=== PATIENT | female | born 1975 | race Caucasian/White ===

== ENCOUNTER 2017-10-14 16:02 | Observation (INO) | payer MEDICAID ==
[2017-10-14 16:02] VITALS: BMI 47.3
--- NOTE | 2017-10-14 16:18 | C.PDOC ---
Time Seen by Provider: 10/14/17 16:14 Chief Complaint (Nursing): Weakness/Neurological Deficit Past Medical History Vital Signs: Last Vital Signs Temp 98.6 F 10/14/17 16:07 Pulse 90 10/14/17 16:07 Resp 18 10/14/17 16:07 BP 127/84 10/14/17 16:07 Pulse Ox 98 10/14/17 16:25 - Medical History PMH: Asthma, Depression (resolved), HTN, Hypercholesterolemia (now resolved) Denies: Chronic Kidney Disease [facility]OPHAGOGASTRODUODENOSCOPY [EGD] W/CLOSED BIOPSY (01/29/14) EXCISION OF STOMACH, ENDO, DIAGN (04/15/15) LAPAROSCOPIC REPAIR OF DIAPHRAGMATIC HRN, ABDOMINAL APPROACH (07/29/14) LAPAROSCOPIC ROBOTIC ASSISTED PROCEDURE (07/29/14) LAPAROSCOPIC VERTICAL (SLEEVE) GASTRECTOMY (07/29/14) OTHER GASTROSCOPY (07/29/14) Family History: States: Diabetes, Hypertension - Social History Hx Tobacco Use: No Hx Alcohol Use: No Hx Substance Use: No - Immunization History Hx Tetanus Toxoid Vaccination: Yes Hx Influenza Vaccination: Yes Hx Pneumococcal Vaccination: No ED Course And Treatment O2 Sat by Pulse Oximetry: 98 Disposition - Disposition Forms: [employer] (Bulgarian)
--- NOTE | 2017-10-14 16:25 | C.PDOC ---
History Of Present Illness 42 year old female presents to the emergency department with complaints of new onset headache, right facial and R leg weakness. Patient states that her headache has been constant and persistent since midnight. However, right her facial numbness and leg left weakness began at 9AM this morning and has been constant since. She denies history of trauma or migraine. Patient states she took Tylenol this morning with no improvement of her symptoms. She denies other associated symptoms. NEW ONSET PALOMARES, R FACIAL AND LEG WEAKNESS. PALOMARES SINCE MIDNIGHT. CONSTANT. NEW ONSET R FACIAL NUMBNESS, R LEG WEAKNESS SINCE 0900. CONSTANT. DENIES HO TRAUMA, MIGRAINE. SP ASA THIS MORNING NO IMPROVE. DENIES OTHER ASSOC SX PMHX: denies Pshx: Gastric sleeve 07/2014 and 2012 Shx: Denies alcohol,drugs or smoking Fhx: Father has DM, HTN, and hyperlipidemia EXAM NONTOXIC HEENT NEG GAIT LIMITED FULL STAND DORSIFLEX NEURO SEE NIH REMAINDER NEG Time Seen by Provider: 10/14/17 16:14 Chief Complaint (Nursing): Weakness/Neurological Deficit History Per: Patient History/Exam Limitations: no limitations Onset/Duration Of Symptoms: Hrs Current Symptoms Are (Timing): Still Present Quality: Aching, Other (weakness, numbness) Past Medical History Reviewed: Historical Data, Nursing Documentation, Vital Signs Vital Signs: Last Vital Signs Temp 98.6 F 10/14/17 16:07 Pulse 91 H 10/14/17 16:57 Resp 16 10/14/17 16:57 BP 133/80 10/14/17 16:57 Pulse Ox 98 10/14/17 18:04 - Medical History PMH: Asthma, Depression (resolved), HTN, Hypercholesterolemia (now resolved) Denies: Chronic Kidney Disease Surgical History: Endoscopy Other Surgeries: Gastric sleeve 07/2014, 2012 - [facility] Procedures ESOPHAGOGASTRODUODENOSCOPY [EGD] W/CLOSED BIOPSY (01/29/14) EXCISION OF STOMACH, ENDO, DIAGN (04/15/15) LAPAROSCOPIC REPAIR OF DIAPHRAGMATIC HRN, ABDOMINAL APPROACH (07/29/14) LAPAROSCOPIC ROBOTIC ASSISTED PROCEDURE (07/29/14) LAPAROSCOPIC VERTICAL (SLEEVE) GASTRECTOMY (07/29/14) OTHER GASTROSCOPY (07/29/14) Family History: States: Diabetes, Hypertension, Other Other Family History: Hyperlipidemia - Social History Hx Tobacco Use: No Hx Alcohol Use: No Hx Substance Use: No - Immunization History Hx Tetanus Toxoid Vaccination: Yes Hx Influenza Vaccination: Yes Hx Pneumococcal Vaccination: No Review Of Systems Except As Marked, All Systems Reviewed And Found Negative. Neurological: Positive for: Headache Physical Exam - Physical Exam Appears: Non-toxic, No Acute Distress Skin: Warm, Dry Head: Atraumatic, Normacephalic Eye(s): bilateral: Normal Inspection Neck: Normal, Supple Chest: Symmetrical Cardiovascular: Rhythm Regular Respiratory: Normal Breath Sounds, No Rales, No Rhonchi, No Wheezing Extremity: No Normal ROM, No Tenderness Neurological/Psych: Oriented x3, Normal Speech, Normal Cognition Gait: Other (limited full-standing and dorsiflexion) ED Course And Treatment - Laboratory Results Result Diagrams: 10/14/17 17:09 10/14/17 17:09 O2 Sat by Pulse Oximetry: 98 (RA) Pulse Ox Interpretation: Normal - CT Scan/US CT Head Other Rad Studies (CT/US): Read By Radiologist, Radiology Report Reviewed CT/US Interpretation: IMPRESSION: No acute findings. Aspect 10 CTA Neck Other Rad Studies (CT/US): Read By Radiologist, Radiology Report Reviewed CT/US Interpretation: IMPRESSION: Normal neck CTA Progress Note: Plan: Blood Bank Type and Screen. CTA Head/Neck Code Stroke. CT Head (Code Stroke). EKG. CMP. Hemoglobin A1C. Lipid Panel. Troponin I. CBC. PTT. Prothrombin Time. CXR. Glucose POC. Ecotrin 243 mg PO. NaCl IV Fluids NIHSS Stroke Scale - Date/Time Evaluation Performed Date Performed: 10/14/17 Time Performed: 16:30 When Was NIHSS Performed: Baseline - How Severe is the Stoke Level of Consciousness: 0=Alert LOC to Questions: 0=Both comments correct LOC to commands: 0=Obeys both correctly Best Gaze: 0=Normal Visual: 0=No visual loss Facial: 0=Normal Motor Arm - Left: 0=No drift Motor Arm - Right: 0=No drift Motor Leg - Left: 0=No drift Motor Leg - Right: 0=No drift Limb Ataxia: 0=Absent Sensory: 1=Mild to moderate loss Best Language: 0=No aphasia Dysarthia: 0=Normal articulation Extinction & Inattention (Neglect): 0=Normal, no object Score: 1 Severity Of Stroke: 1-4= Minor Stroke NIHSS Stroke Scale 2 - Date/Time Evaluation Performed Date Performed: 10/14/17 Time Performed: 17:46 When Was NIHSS Performed: Re-evaluation - How Severe is the Stroke Level of Consciousness: 0=Alert LOC to Questions: 0=Both comments correct LOC to commands: 0=Obeys both correctly Best Gaze: 0=Normal Visual: 0=No visual loss Facial: 0=Normal Motor Arm - Left: 0=No drift Motor Arm - Right: 0=No drift Motor Leg - Left: 0=No drift Motor Leg - Right: 0=No drift Limb Ataxia: 0=Absent Sensory: 1=Mild to moderate loss Best Language: 0=No aphasia Dysarthia: 0=Normal articulation Extinction & Inattention (Neglect): 0=Normal, no object Score: 1 Progress - Re-Evaluation Re-evaluation Note: 10/14/17 16:25 CODE STROKE ACTIVATED 10/14/17 17:33 D/W DR MANCUSO NEURO DEPUTY DIRECTOR OF NURSING AWARE OF ER FINDINGS. NOT TPA CANDIDATE. RECOMMENDS MG, DEPAKOTE, DEX, IVF, MRI, ADMIT MED 10/14/17 17:46 EXAM UNCH PRIOR. VSS. 10/14/17 18:07 d/w dr davalos WILL ADMIT - Data Reviewed Data Reviewed: Lab, Diagnostic imaging, EKG, Old records - Critical Care Citical Care: Excluding Proc Time Critical Care Time: 90 minutes rTPA Inclusion/Exclusion - Refusal of Treatment Patient Refused Treatment: No - Inclusion Criteria for Altepase Patient is 18 years or Older: Yes The Clinical Diagnosis of Ischemic Stroke That is Causing a Potentially Disabling Neurological Deficit: Yes Time of Onset is Well Established to be Less Than 270 Minute Before Treatment Would Begin: No Risk/Benefit Discussed With Patient/Family Member Present: Yes - Exclusion Criteria for Altepase Uncontrolled Hypertension at Time of Treatment (Systolic BP above 185 or Diastolic BP above 110 mmHg): No Active Internal Bleeding: No Known Bleeding Diathesis Including but Not Limited to: Platelets Below 100,000/ mm,PTT Above 40 sec After Heparin Use, Current Use of Oral Anitcoagulant With INR Greater Than 1.7 or PT Greater Than 15 secs: No Evidence of an Intracranial Hemorrhage: No Evidence of Major Acute Infarct With Signs Greater Than 1/3 MCA Territory: No Suspicion of Subarachnoid Hemorrhage on Pretreatment Evaluation Even if CT Head Negative For Hemorrhage: No - Warning to TPA With Conditions Following Conditions Weighed Against Anticipated Benefit: No Condition: Stroke Serevity Too Mild Disposition Counseled Patient/Family Regarding: Studies Performed, Diagnosis - Disposition Disposition: HOSPITALIZED Disposition Time: 18:08 Condition: STABLE Forms: [facility] (Nepalese) - POA Present On Arrival: None - Clinical Impression Clinical Impression: TIA (transient ischemic attack), Headache - Scribe Statement The provider has reviewed the documentation as recorded by the Scribe (Landon Noonan) Provider Attestation: All medical record entries made by the Scribe were at my direction and personally dictated by me. I have reviewed the chart and agree that the record accurately reflects my personal performance of the history, physical exam, medical decision making, and the department course for this patient. I have also personally directed, reviewed, and agree with the discharge instructions and disposition. Decision To Admit - Pt Status Changed To: Hospital Disposition Of: Observation - . Bed Request Type: Telemetry Admitting Physician: Pati Davalos Patient Diagnosis: TIA (transient ischemic attack), Headache
[2017-10-14] MEDS ORDERED: Iodixanol 320 MG/ML 100 ML BOTTLE IV ONE (16:41)
[2017-10-14] MEDS: Sodium Chloride 0.9% 1,000 ML IV SCH (17:07)
[2017-10-14] MEDS ORDERED: Sodium Chloride 0.9% 1,000 ML ONE (17:11)
[2017-10-14 17:15] LABS: BASO # 0.1 K/uL (0.0-0.2); BASO % 0.9 % (0.0-2.0); EOS # 0.3 K/uL (0.0-0.7); HEMOGLOBIN 8.2 g/dL (11.0-16.0); LYMPH # 1.4 K/uL (1.0-4.3); LYMPH % 16.5 % (20.0-40.0); MEAN CELL VOLUME 63.9 fL (81.0-99.0); MEAN CORPUSCULAR HEMOGLOBIN 20.3 pg (27.0-31.0); MEAN CORPUSCULAR HGB CONC 31.7 g/dL (33.0-37.0); MEAN PLATELET VOLUME 8.3 fL (7.2-11.7); MONO # 0.9 K/uL (0.0-0.8); MONO % 10.7 % (0.0-10.0); NEUT # 5.8 K/uL (1.8-7.0); NEUT % 68.9 % (50.0-75.0); RBC 4.05 Mil/uL (3.80-5.20); RED CELL DISTRIBUTION WIDTH 18.2 % (11.5-14.5); WHITE BLOOD COUNT 8.5 K/uL (4.8-10.8)
[2017-10-14 17:25] LABS: PROTHROMBIN TIME 11.4 SECONDS (9.7-12.2)
[2017-10-14 17:28] LABS: ALB/GLOB RATIO 1.1 (1.0-2.1); ALBUMIN 3.8 g/dL (3.5-5.0); ALT/SGPT 24 U/L (9-52); AST/SGOT 20 U/L (14-36); BLOOD UREA NITROGEN 20 mg/dL (7-17); CALCIUM 8.6 mg/dl (8.6-10.4); GFR NON-AFRICAN AMERICAN > 60; HDL CHOLESTEROL 63 mg/dL (30-70)
[2017-10-14] MEDS ORDERED: Magnesium Sulfate 1 gm in D5W 1 GM/100 ML BAG IVPB STA (17:30)
[2017-10-14] MEDS ORDERED: Sodium Chloride 0.9% 1,000 ML IV STA (17:30)
[2017-10-14] MEDS ORDERED: Dexamethasone 4 mg/1 ml IVP STA (17:30)
--- NOTE | 2017-10-14 17:34 | RAD ---
Date of service: 10/14/2017 HISTORY: Code Stroke COMPARISON: No prior. FINDINGS: LUNGS: Poor inspiration with low lung volumes, crowded bronchovascular markings and mild bibasilar atelectasis. PLEURA: No significant pleural effusion identified, no pneumothorax apparent. CARDIOVASCULAR: Cardiomegaly. TheNormal. OSSEOUS STRUCTURES: No significant abnormalities. VISUALIZED UPPER ABDOMEN: Normal. OTHER FINDINGS: None. IMPRESSION: Poor inspiration with low lung volumes, crowded bronchovascular markings and mild bibasilar atelectasis.
[2017-10-14 17:39] LABS: LDL CHOLESTEROL 101 mg/dL (0-129)
[2017-10-14] MEDS ORDERED: Valproate 500 MG in Sodium Chloride 0.9% 100 ML IVPB STA (17:54)
--- NOTE | 2017-10-14 17:54 | CT ---
Date of service: 10/14/2017 PROCEDURE: CT HEAD WITHOUT CONTRAST. HISTORY: Code Stroke R FACIAL NUMB, R LEG WEAKNESS, PALOMARES COMPARISON: None available. TECHNIQUE: Axial computed tomography images were obtained through the head/brain without intravenous contrast. Radiation dose: Total exam DLP = 922.98 mGy-cm. This CT exam was performed using one or more of the following dose reduction techniques: Automated exposure control, adjustment of the mA and/or kV according to patient size, and/or use of iterative reconstruction technique. FINDINGS: HEMORRHAGE: No acute parenchymal, subarachnoid or extra-axial the hemorrhage. BRAIN: No mass effect or edema. No evidence of large acute infarct. No significant or chronic microvascular ischemic changes. Note that the possibility of a small hyperacute infarct cannot be excluded based on this exam. Ventricular and sulcal size are within range of normal for this patient's stated age. VENTRICLES: No obstructive hydrocephalus. CALVARIUM: Unremarkable. PARANASAL SINUSES: Minor mucosal thickening within the ethmoid air complex. MASTOID AIR CELLS: Unremarkable as visualized. No inflammatory changes. OTHER FINDINGS: None. IMPRESSION: No acute intracranial hemorrhage. Note that the possibility of a small hyperacute infarct cannot be excluded on this exam
--- NOTE | 2017-10-14 18:33 | CT ---
Date of service: 10/14/2017 PROCEDURE: CT Angiography of the neck with contrast HISTORY: R FACIAL NUMB, R LEG WEAKNESS, PALOMARES COMPARISON: Comparison made with concurrent CT scan brain TECHNIQUE: Contiguous axial images of the neck brain were obtained from the level of the skull- vertex to the superior mediastinum in the arteriographic phase of enhancement. Coronal and sagittal reformats or also generated. IV contrast dose:. 100 cc Visipaque 320 Radiation Dose - DLP: 548.17 mGy-cm This CT exam was performed using one or more of the following dose reduction techniques: Automated exposure control, adjustment of the mA and/or kV according to patient size, and/or use of iterative reconstruction technique. . FINDINGS: The aortic arch widely patent. Origins of the great vessels are also widely patent. The common carotid arteries, carotid bifurcations and internal carotid arteries are patent throughout without evidence of occlusion, stenosis or dissection. The vertebral arteries are also patent throughout. Basilar artery is patent. The visualized major branches of the [place] and distal cerebral vasculature is also patent and relatively symmetric no evidence of large aneurysm nor vascular malformation OTHER FINDINGS: Mucosal thickening present within right maxillary antrum and right chamber sphenoid sinus as well as several ethmoid air cells more so on the right side. IMPRESSION: Normal CT Angiography of the neck.
--- NOTE | 2017-10-14 20:32 | CP.PCM.HP ---
<Franklin Mccallum - Last Filed: 10/15/17 04:11> History of Present Illness - History of Present Illness History of Present Illness: PGY2 Medicine H+P for Dr. Lopez Patient is a 42 year old female with a past medical history of asthma presenting to the emergency department with a complaint of a headache with right sided facial numbness and right leg weakness. The symptoms started with a headache last night before waking up with the facial numbness/weakness around 9am this morning. She attempted to take a Tylenol this morning with no improvement. Patient has never experienced these symptoms in the past. Denies fevers, chills, nausea, vomiting, diarrhea, constipation, chest pain, shortness of breath, abdominal pain, tremors, bladder/bowel incontinence. ED Course: A code stroke was as activated but patient was not a candidate for tPA. Neuro recommended treatment with mg, depakote, decadron, aspirin, toradol, reglan and IVF. Patient reports that all of her symptoms have resolved and she is currently feeling back to normal. She is no longer experiencing PMH: Asthma PSH: Gastric sleeve (2014), Tummy Tuckerck (2013) Family: diabetes, HTN Social: denies tobacco, alcohol or illicit drug use Allergies: NKDA Present on Admission - Present on Admission Any Indicators Present on Admission: No Review of Systems - Review of Systems All systems: reviewed and no additional remarkable complaints except - Constitutional Constitutional: As Per HPI - EENT Eyes: As Per HPI Nose/Mouth/Throat: As Per HPI - Cardiovascular Cardiovascular: As Per HPI - Respiratory Respiratory: As Per HPI - Gastrointestinal Gastrointestinal: As Per HPI - Genitourinary Genitourinary: As Per HPI - Musculoskeletal Musculoskeletal: As Per HPI - Integumentary Integumentary: As Per HPI - Neurological Neurological: As Per HPI - Psychiatric Psychiatric: As Per HPI - Endocrine Endocrine: As Per HPI - Hematologic/Lymphatic Hematologic: As Per HPI Past Patient History - Past Medical History & Family History Past Medical History?: Yes - Past Social History Smoking Status: Never Smoked - CARDIAC Hx Hypercholesterolemia: Yes (now resolved) Hx Hypertension: Yes - PULMONARY Hx Asthma: Yes - NEUROLOGICAL Hx Neurological Disorder: No - HEENT Hx HEENT Problems: No - RENAL Hx Chronic Kidney Disease: No - ENDOCRINE/METABOLIC Hx Endocrine Disorders: No - HEMATOLOGICAL/ONCOLOGICAL Hx Blood Disorders: Yes - INTEGUMENTARY Hx Dermatological Problems: No - MUSCULOSKELETAL/RHEUMATOLOGICAL Hx Musculoskeletal Disorders: Yes Hx Falls: No - GASTROINTESTINAL Hx Gastrointestinal Disorders: No - GENITOURINARY/GYNECOLOGICAL Hx Genitourinary Disorders: No - PSYCHIATRIC Hx Depression: Yes (resolved) Hx Substance Use: No - SURGICAL HISTORY Hx Surgeries: Yes (ABDOMINOPLASTY) - ANESTHESIA Hx Anesthesia: Yes Hx Anesthesia Reactions: No Hx Malignant Hyperthermia: No Meds Allergies/Adverse Reactions: Allergies Allergy/AdvReac Type Severity Reaction Status Date / Time No Known Allergies Allergy Verified 04/14/15 20:23 Physical Exam - Constitutional Appears: Well, Non-toxic, No Acute Distress - Head Exam Head Exam: ATRAUMATIC, NORMOCEPHALIC - Eye Exam Eye Exam: EOMI, Normal appearance, PERRL. absent: Scleral icterus Pupil Exam: NORMAL ACCOMODATION, PERRL - ENT Exam ENT Exam: Mucous Membranes Moist - Neck Exam Neck exam: Positive for: Full Rom, Normal Inspection. Negative for: Lymphadenopathy, Tenderness - Respiratory Exam Respiratory Exam: Clear to Auscultation Bilateral, NORMAL BREATHING PATTERN. absent: Accessory Muscle Use, Chest Wall Tenderness, Rales, Rhonchi, Wheezes, Respiratory Distress - Cardiovascular Exam Cardiovascular Exam: REGULAR RHYTHM, +S1, +S2 - GI/Abdominal Exam GI & Abdominal Exam: Normal Bowel Sounds, Soft. absent: Distended, Firm, Guarding, Rebound, Rigid, Tenderness - Extremities Exam Extremities exam: Positive for: normal capillary refill, normal inspection, pedal pulses present. Negative for: calf tenderness, pedal edema, tenderness - Neurological Exam Neurological exam: Alert, CN II-XII Intact, Oriented x3 - Expanded Neurological Exam Expanded Patient oriented to: person, place, time Speech: Fluid Speech Cranial nerves: EOM's Intact: Normal, Facial Sensation: Normal, Nystagmus: Normal, Tongue Deviation: Normal Ataxia: No Cerebellar Function: Finger to Nose: Normal, Heel to [place]: Normal, Romberg: Normal Upper motor neuron: Babinski Sign: Normal, Pronator Drift: Normal Sensory exam: Lower Extremity Light Touch: Normal, Upper Extremity Light Touch: Normal Neuro motor strength exam: Left Upper Extremity: 5, Right Upper Extremity: 5 ( slightly weaker on right>left), Left Lower Extremity: 5, Right Lower Extremity: 5 (slightly weaker on right>left) Coma Scale Eye Opening: SPONTANEOUS Coma Scale Motor Response: OBEYS COMMANDS Coma Scale Verbal: Oriented Coma Scale Total: 15 - Psychiatric Exam Psychiatric exam: Normal Affect, Normal Mood - Skin Skin Exam: Dry, Normal Color, Warm Results - Vital Signs Recent Vital Signs: Last Vital Signs Temp 98.6 F 10/14/17 16:07 Pulse 84 10/14/17 19:48 Resp 14 10/14/17 19:48 BP 137/75 10/14/17 19:48 Pulse Ox 99 10/14/17 19:48 - Labs Result Diagrams: 10/14/17 17:09 10/14/17 17:09 Labs: Laboratory Results - last 24 hr 10/14/17 10/14/17 10/14/17 16:08 16:27 17:09 WBC 8.5 RBC 4.05 Hgb 8.2 L D Hct 25.8 L MCV 63.9 L D MCH 20.3 L MCHC 31.7 L RDW 18.2 H Plt Count 324 MPV 8.3 Neut % (Auto) 68.9 Lymph % (Auto) 16.5 L [place] % (Auto) 10.7 H Eos % (Auto) 3.0 Baso % (Auto) 0.9 Neut # (Auto) 5.8 Lymph # (Auto) 1.4 [place] # (Auto) 0.9 H Eos # (Auto) 0.3 Baso # (Auto) 0.1 Differential Comment PT INR APTT Sodium Potassium Chloride Carbon Dioxide Anion Gap BUN Creatinine Est GFR ( Amer) Est GFR (Non-Af Amer) POC Glucose (mg/dL) 100 94 Random Glucose Hemoglobin A1c Calcium Total Bilirubin AST ALT Alkaline Phosphatase Troponin I Total Protein Albumin Globulin Albumin/Globulin Ratio Triglycerides Cholesterol LDL Cholesterol Direct HDL Cholesterol Blood Type Antibody Screen 10/14/17 10/14/17 10/14/17 17:09 17:09 17:09 WBC RBC Hgb Hct MCV MCH MCHC RDW Plt Count MPV Neut % (Auto) Lymph % (Auto) [place] % (Auto) Eos % (Auto) Baso % (Auto) Neut # (Auto) Lymph # (Auto) [place] # (Auto) Eos # (Auto) Baso # (Auto) Differential Comment PT 11.4 INR 1.0 APTT 27 Sodium 140 Potassium 3.8 Chloride 103 Carbon Dioxide 27 Anion Gap 13 BUN 20 H Creatinine 0.9 Est GFR ( Amer) > 60 Est GFR (Non-Af Amer) > 60 POC Glucose (mg/dL) Random Glucose 96 Hemoglobin A1c 5.3 Calcium 8.6 Total Bilirubin 0.2 AST 20 ALT 24 Alkaline Phosphatase 109 Troponin I < 0.0120 Total Protein 7.1 Albumin 3.8 Globulin 3.3 Albumin/Globulin Ratio 1.1 Triglycerides 197 H Cholesterol 192 LDL Cholesterol Direct 101 HDL Cholesterol 63 Blood Type Antibody Screen 10/14/17 17:09 WBC RBC Hgb Hct MCV MCH MCHC RDW Plt Count MPV Neut % (Auto) Lymph % (Auto) [place] % (Auto) Eos % (Auto) Baso % (Auto) Neut # (Auto) Lymph # (Auto) [place] # (Auto) Eos # (Auto) Baso # (Auto) Differential Comment PT INR APTT Sodium Potassium Chloride Carbon Dioxide Anion Gap BUN Creatinine Est GFR ( Amer) Est GFR (Non-Af Amer) POC Glucose (mg/dL) Random Glucose Hemoglobin A1c Calcium Total Bilirubin AST ALT Alkaline Phosphatase Troponin I Total Protein Albumin Globulin Albumin/Globulin Ratio Triglycerides Cholesterol LDL Cholesterol Direct HDL Cholesterol Blood Type A POSITIVE Antibody Screen Negative Assessment & Plan - Assessment and Plan (Free Text) Plan: [place]/R-sided facial numbness/R-sided leg weakness (resolved) CODE STROKE CALLED Neuro consulted, Dr. Childers * Patient not a candidate for tPA * Patient tx'd with mg, depakote, decadron, aspirin, toradol, reglan and IVF in ED * follow up recs. Head CT w/o 10/14: * No acute intracranial hemorrhage. Note that the possibility of a small hyperacute infarct cannot be excluded on this exam. Head CTA 10/14: * Normal CT Angiography of the neck. CXR 10/14: * Poor inspiration with low lung volumes, crowded bronchovascular markings and mild bibasilar atelectasis. Neuro Exam unremarkable continue to monitor Medications: * NS@100mL/hr Prophylactic Care Lovenox 40mg SC daily Case discussed with Dr. Jessica Reid Alessio PGY2 <Ruben Lopez - Last Filed: 10/15/17 06:03> Results - Vital Signs Recent Vital Signs: Last Vital Signs Temp 98.5 F 10/15/17 04:22 Pulse 88 10/15/17 04:22 Resp 20 10/15/17 04:22 BP 113/89 10/15/17 04:22 Pulse Ox 98 10/15/17 04:22 - Labs Result Diagrams: 10/14/17 17:09 10/14/17 17:09 Labs: Laboratory Results - last 24 hr 10/14/17 10/14/17 10/14/17 16:08 16:27 17:09 WBC 8.5 RBC 4.05 Hgb 8.2 L D Hct 25.8 L MCV 63.9 L D MCH 20.3 L MCHC 31.7 L RDW 18.2 H Plt Count 324 MPV 8.3 Neut % (Auto) 68.9 Lymph % (Auto) 16.5 L [place] % (Auto) 10.7 H Eos % (Auto) 3.0 Baso % (Auto) 0.9 Neut # (Auto) 5.8 Lymph # (Auto) 1.4 [place] # (Auto) 0.9 H Eos # (Auto) 0.3 Baso # (Auto) 0.1 Differential Comment PT INR APTT Sodium Potassium Chloride Carbon Dioxide Anion Gap BUN Creatinine Est GFR ( Amer) Est GFR (Non-Af Amer) POC Glucose (mg/dL) 100 94 Random Glucose Hemoglobin A1c Calcium Total Bilirubin AST ALT Alkaline Phosphatase Troponin I Total Protein Albumin Globulin Albumin/Globulin Ratio Triglycerides Cholesterol LDL Cholesterol Direct HDL Cholesterol Blood Type Antibody Screen 10/14/17 10/14/17 10/14/17 17:09 17:09 17:09 WBC RBC Hgb Hct MCV MCH MCHC RDW Plt Count MPV Neut % (Auto) Lymph % (Auto) [place] % (Auto) Eos % (Auto) Baso % (Auto) Neut # (Auto) Lymph # (Auto) [place] # (Auto) Eos # (Auto) Baso # (Auto) Differential Comment PT 11.4 INR 1.0 APTT 27 Sodium 140 Potassium 3.8 Chloride 103 Carbon Dioxide 27 Anion Gap 13 BUN 20 H Creatinine 0.9 Est GFR ( Amer) > 60 Est GFR (Non-Af Amer) > 60 POC Glucose (mg/dL) Random Glucose 96 Hemoglobin A1c 5.3 Calcium 8.6 Total Bilirubin 0.2 AST 20 ALT 24 Alkaline Phosphatase 109 Troponin I < 0.0120 Total Protein 7.1 Albumin 3.8 Globulin 3.3 Albumin/Globulin Ratio 1.1 Triglycerides 197 H Cholesterol 192 LDL Cholesterol Direct 101 HDL Cholesterol 63 Blood Type Antibody Screen 10/14/17 17:09 WBC RBC Hgb Hct MCV MCH MCHC RDW Plt Count MPV Neut % (Auto) Lymph % (Auto) [place] % (Auto) Eos % (Auto) Baso % (Auto) Neut # (Auto) Lymph # (Auto) [place] # (Auto) Eos # (Auto) Baso # (Auto) Differential Comment PT INR APTT Sodium Potassium Chloride Carbon Dioxide Anion Gap BUN Creatinine Est GFR ( Amer) Est GFR (Non-Af Amer) POC Glucose (mg/dL) Random Glucose Hemoglobin A1c Calcium Total Bilirubin AST ALT Alkaline Phosphatase Troponin I Total Protein Albumin Globulin Albumin/Globulin Ratio Triglycerides Cholesterol LDL Cholesterol Direct HDL Cholesterol Blood Type A POSITIVE Antibody Screen Negative Assessment & Plan - Date & Time Date: 10/15/17 (I have seen and examined the patient. I agree with the findings and plan of care as documented by Dr. Mccallum. Patient with CVA. Code stroke called in ED. Consult to Neuro. Not a tPA candidate. Follow code stroke protocol. Monitor for acute changes.) Time: 06:02 Attending/Attestation - Attestation I have personally seen and examined this patient.: Yes I have fully participated in the care of the patient.: Yes I have reviewed all pertinent clinical information: Yes
[2017-10-15 00:39] VITALS: RESP 20
[2017-10-15] MEDS: Sodium Chloride 0.9% 1,000 ML IV SCH ×3 (02:30→22:35)
[2017-10-15 08:02] LABS: BASO % 0.2 % (0.0-2.0); HEMOGLOBIN 8.6 g/dL (11.0-16.0); LYMPH # 0.9 K/uL (1.0-4.3); LYMPH % 10.4 % (20.0-40.0); MEAN CELL VOLUME 64.3 fL (81.0-99.0); MEAN CORPUSCULAR HEMOGLOBIN 20.9 pg (27.0-31.0); MEAN CORPUSCULAR HGB CONC 32.6 g/dL (33.0-37.0); MEAN PLATELET VOLUME 9.1 fL (7.2-11.7); MONO # 0.3 K/uL (0.0-0.8); MONO % 3.3 % (0.0-10.0); NEUT # 7.9 K/uL (1.8-7.0); NEUT % 86.1 % (50.0-75.0); RBC 4.11 Mil/uL (3.80-5.20); RED CELL DISTRIBUTION WIDTH 18.7 % (11.5-14.5); WHITE BLOOD COUNT 9.1 K/uL (4.8-10.8)
[2017-10-15 08:25] LABS: ALB/GLOB RATIO 0.9 (1.0-2.1); ALBUMIN 3.6 g/dL (3.5-5.0); ALT/SGPT 19 U/L (9-52); AST/SGOT 23 U/L (14-36); BLOOD UREA NITROGEN 13 mg/dL (7-17); CALCIUM 8.5 mg/dl (8.6-10.4); GFR NON-AFRICAN AMERICAN > 60
--- NOTE | 2017-10-15 10:16 | CP.PCM.PN ---
Subjective - Date & Time of Evaluation Date of Evaluation: 10/15/17 Time of Evaluation: 10:00 - Subjective Subjective: Patient was seen and examined by me. Reviewed HP and it seems overnight she had resolution of the symptoms that brought her in, however when I came and saw this morning she indicated to me the right arm and right leg felt weak and heavy again. She also reported right facial numbness and parathesia. Denied shortness of breath, denied palpitations, denied abomdinal pain + mild chest pain, + feeling dizzy On exam muscle strength on the right was 4/5 both arms and legs. She was able to lift arms and legs > 5 seconds but remarks that they feel heavy to her. No facial droop, EOMI intact, CN2-12 intact. She was able to walk on exam into the hallway however she had to hold onto the side rail. She felt very dizzy she said. Objective - Vital Signs/Intake and Output Vital Signs (last 24 hours): Temp Pulse Resp BP Pulse Ox 97.4 F L 62 20 155/66 H 100 10/15/17 08:20 10/15/17 08:20 10/15/17 08:20 10/15/17 08:20 10/15/17 08:20 - Medications Medications: Current Medications Enoxaparin Sodium (Lovenox) 40 mg SC DAILY [facility] Sodium Chloride (Sodium Chloride 0.9%) 1,000 mls @ 100 mls/hr IV .Q10H [facility] Last Admin: 10/15/17 02:30 Dose: Not Given - Labs Labs: 10/15/17 07:50 10/15/17 07:50 PT 11.4 SECONDS (9.7-12.2) 10/14/17 17:09 INR 1.0 10/14/17 17:09 APTT 27 SECONDS (21-34) 10/14/17 17:09 - Constitutional Appears: Well, Non-toxic, No Acute Distress - Head Exam Head Exam: NORMAL INSPECTION, NORMOCEPHALIC - Eye Exam Eye Exam: EOMI, Normal appearance - ENT Exam ENT Exam: Mucous Membranes Moist - Respiratory Exam Respiratory Exam: Clear to Ausculation Bilateral, NORMAL BREATHING PATTERN - Cardiovascular Exam Cardiovascular Exam: REGULAR RHYTHM - GI/Abdominal Exam GI & Abdominal Exam: Soft, Normal Bowel Sounds - Neurological Exam Neurological Exam: Abnormal Gait, Alert, Awake, CN II-XII Intact, Oriented x3. absent: Normal Gait Neuro motor strength exam: Right Upper Extremity: 4, Right Lower Extremity: 4 Additional comments: CN 2-12 intact She is able to ambulate into the hallway however unsteady and slow gait. No facial drooping seen, EOMI, she is able to raise right arm and leg > 5 seconds no drifting however reports weakness and heavy - Skin Skin Exam: Normal Color, Warm Assessment and Plan - Assessment and Plan (Free Text) Assessment: Heach/R-sided facial numbness/R-sided leg weakness (resolved) 10/15: Patient earlier had resolution of symptoms, however as of 10:00 AM she felt the same right side weakness again and dizzuness. She has had CT of head and CTA of head and neck. On ASA, statin, ordering echo. Her risk factors are HTN. She may need MRI to further evaluate for an early infacrt CODE STROKE CALLED Neuro consulted, Dr. Childers * Patient not a candidate for tPA * Patient tx'd with mg, depakote, decadron, aspirin, toradol, reglan and IVF in ED * follow up recs. Head CT w/o 10/14: * No acute intracranial hemorrhage. Note that the possibility of a small hyperacute infarct cannot be excluded on this exam. Head CTA 10/14: * Normal CT Angiography of the neck. CXR 10/14: * Poor inspiration with low lung volumes, crowded bronchovascular markings and mild bibasilar atelectasis. Neuro Exam unremarkable continue to monitor Medications: * NS@100mL/hr Prophylactic Care Lovenox 40mg SC daily
[2017-10-15] MEDS: Enoxaparin 40 mg Syringe SC SCH (10:44)
--- NOTE | 2017-10-15 14:14 | CP.PCM.CON ---
History of Present Illness - History of Present Illness History of Present Illness: Neurology Consultation Note: Mrs. Bliss is a 42-year-old woman with a past medical history of asthma, who states that the night before last night she had a severe headache and woke up the following morning with right facial numbness and right leg numbness/ weakness. CT scan of the head was normal. CTA of the head/neck did not show any large vessel occlusion or stenosis. She was not a candidate for IV tPA due to minimal symptoms and being outside the 4.5 hour time window. Review of Systems - Review of Systems All systems: reviewed and no additional remarkable complaints except Past Patient History - Past Medical History & Family History Past Medical History?: Yes - Past Social History Smoking Status: Never Smoked - CARDIAC Hx Hypercholesterolemia: Yes (now resolved) Hx Hypertension: Yes - PULMONARY Hx Asthma: Yes - NEUROLOGICAL Hx Neurological Disorder: No - HEENT Hx HEENT Problems: No - RENAL Hx Chronic Kidney Disease: No - ENDOCRINE/METABOLIC Hx Endocrine Disorders: No - HEMATOLOGICAL/ONCOLOGICAL Hx Blood Disorders: Yes - INTEGUMENTARY Hx Dermatological Problems: No - MUSCULOSKELETAL/RHEUMATOLOGICAL Hx Musculoskeletal Disorders: Yes Hx Falls: No - GASTROINTESTINAL Hx Gastrointestinal Disorders: No - GENITOURINARY/GYNECOLOGICAL Hx Genitourinary Disorders: No - PSYCHIATRIC Hx Depression: Yes (resolved) Hx Substance Use: No - SURGICAL HISTORY Hx Surgeries: Yes (ABDOMINOPLASTY) - ANESTHESIA Hx Anesthesia: Yes Hx Anesthesia Reactions: No Hx Malignant Hyperthermia: No Meds Allergies/Adverse Reactions: Allergies Allergy/AdvReac Type Severity Reaction Status Date / Time No Known Allergies Allergy Verified 04/14/15 20:23 - Medications Medications: Current Medications Acetaminophen (Tylenol 325mg Tab) 650 mg PO Q6 PRN PRN Reason: Headache Last Admin: 10/15/17 11:30 Dose: 650 mg Aspirin (Aspirin Chewable) 81 mg PO DAILY [facility] Enoxaparin Sodium (Lovenox) 40 mg SC DAILY [facility] Last Admin: 10/15/17 10:44 Dose: 40 mg Sodium Chloride (Sodium Chloride 0.9%) 1,000 mls @ 100 mls/hr IV .Q10H [facility] Last Admin: 10/15/17 12:03 Dose: 100 mls/hr Pneumococcal Polyvalent Vaccine (Pneumovax 23 Vaccine) 0.5 ml IM .ONCE ONE Stop: 10/16/17 10:01 Rosuvastatin Calcium (Crestor) 10 mg PO HS [facility] Physical Exam - Neurological Exam Neurological exam: Alert, CN II-XII Intact, Normal Gait, Oriented x3, Reflexes Normal Additional comments: Sensation is diminished on the right face, arm and leg as compared with the left. Reflexes were brisk. Plantar response was equivocal on the right side. NIHSS =2 Results - Vital Signs Recent Vital Signs: Last Vital Signs Temp 97.4 F L 10/15/17 08:20 Pulse 62 10/15/17 08:20 Resp 20 10/15/17 08:20 BP 155/66 H 10/15/17 08:20 Pulse Ox 100 10/15/17 08:20 - Labs Result Diagrams: 10/15/17 07:50 10/15/17 07:50 Labs: Laboratory Results - last 24 hr 10/14/17 10/14/17 10/14/17 16:08 16:27 17:09 WBC 8.5 RBC 4.05 Hgb 8.2 L D Hct 25.8 L MCV 63.9 L D MCH 20.3 L MCHC 31.7 L RDW 18.2 H Plt Count 324 MPV 8.3 Neut % (Auto) 68.9 Lymph % (Auto) 16.5 L [place] % (Auto) 10.7 H Eos % (Auto) 3.0 Baso % (Auto) 0.9 Neut # (Auto) 5.8 Lymph # (Auto) 1.4 [place] # (Auto) 0.9 H Eos # (Auto) 0.3 Baso # (Auto) 0.1 Differential Comment PT INR APTT Sodium Potassium Chloride Carbon Dioxide Anion Gap BUN Creatinine Est GFR ( Amer) Est GFR (Non-Af Amer) POC Glucose (mg/dL) 100 94 Random Glucose Hemoglobin A1c Calcium Total Bilirubin AST ALT Alkaline Phosphatase Troponin I Total Protein Albumin Globulin Albumin/Globulin Ratio Triglycerides Cholesterol LDL Cholesterol Direct HDL Cholesterol Blood Type Antibody Screen 10/14/17 10/14/17 10/14/17 17:09 17:09 17:09 WBC RBC Hgb Hct MCV MCH MCHC RDW Plt Count MPV Neut % (Auto) Lymph % (Auto) [place] % (Auto) Eos % (Auto) Baso % (Auto) Neut # (Auto) Lymph # (Auto) [place] # (Auto) Eos # (Auto) Baso # (Auto) Differential Comment PT 11.4 INR 1.0 APTT 27 Sodium 140 Potassium 3.8 Chloride 103 Carbon Dioxide 27 Anion Gap 13 BUN 20 H Creatinine 0.9 Est GFR ( Amer) > 60 Est GFR (Non-Af Amer) > 60 POC Glucose (mg/dL) Random Glucose 96 Hemoglobin A1c 5.3 Calcium 8.6 Total Bilirubin 0.2 AST 20 ALT 24 Alkaline Phosphatase 109 Troponin I < 0.0120 Total Protein 7.1 Albumin 3.8 Globulin 3.3 Albumin/Globulin Ratio 1.1 Triglycerides 197 H Cholesterol 192 LDL Cholesterol Direct 101 HDL Cholesterol 63 Blood Type Antibody Screen 10/14/17 10/15/17 10/15/17 17:09 07:30 07:50 WBC 9.1 RBC 4.11 Hgb 8.6 L Hct 26.4 L MCV 64.3 L MCH 20.9 L MCHC 32.6 L RDW 18.7 H Plt Count 362 MPV 9.1 Neut % (Auto) 86.1 H Lymph % (Auto) 10.4 L Green[place] % (Auto) 3.3 Eos % (Auto) 0.0 Baso % (Auto) 0.2 Neut # (Auto) 7.9 H Lymph # (Auto) 0.9 L [place] # (Auto) 0.3 Eos # (Auto) 0.0 Baso # (Auto) 0.0 Differential Comment PT INR APTT Sodium Potassium Chloride Carbon Dioxide Anion Gap BUN Creatinine Est GFR ( Amer) Est GFR (Non-Af Amer) POC Glucose (mg/dL) 120 H Random Glucose Hemoglobin A1c Calcium Total Bilirubin AST ALT Alkaline Phosphatase Troponin I Total Protein Albumin Globulin Albumin/Globulin Ratio Triglycerides Cholesterol LDL Cholesterol Direct HDL Cholesterol Blood Type A POSITIVE Antibody Screen Negative 10/15/17 10/15/17 07:50 11:46 WBC RBC Hgb Hct MCV MCH MCHC RDW Plt Count MPV Neut % (Auto) Lymph % (Auto) Greenwood % (Auto) Eos % (Auto) Baso % (Auto) Neut # (Auto) Lymph # (Auto) [place] # (Auto) Eos # (Auto) Baso # (Auto) Differential Comment PT INR APTT Sodium 141 Potassium 4.0 Chloride 108 H Carbon Dioxide 25 Anion Gap 12 BUN 13 Creatinine 0.5 L Est GFR ( Amer) > 60 Est GFR (Non-Af Amer) > 60 POC Glucose (mg/dL) 96 Random Glucose 118 H Hemoglobin A1c Calcium 8.5 L Total Bilirubin 0.3 AST 23 ALT 19 Alkaline Phosphatase 103 Troponin I Total Protein 7.4 Albumin 3.6 Globulin 3.8 Albumin/Globulin Ratio 0.9 L Triglycerides Cholesterol LDL Cholesterol Direct HDL Cholesterol Blood Type Antibody Screen Assessment & Plan (1) Numbness on right side Assessment and Plan: This may be due to an acute stroke, or could be related to the headache and thus part of a complicated migraine. Will obtain MRI of the brain for further evaluation and continue current management. The patient should be on aspirin 81 mg daily. Echocardiogram is recommended. Will continue NS at 100 mL/hr. Allow permissive HTN. PT/OT eval. Status: Acute (2) Headache Assessment and Plan: Will treat the headache as a migraine. She states that it is unilateral, pulsating, associated with photophobia and nausea. Will give the patient 10 mg of decadron IV along with 500 mg of depakote IV and magnesium sulfate 2 grams IV once. Thank you. Status: Acute
[2017-10-15] MEDS ORDERED: Valproate 500 MG in Sodium Chloride 0.9% 100 ML IVPB ONE (14:58)
[2017-10-15] MEDS: Magnesium Sulfate 1 gm in D5W 1 GM/100 ML BAG IVPB SCH (15:50)
[2017-10-15 19:53] LABS: BARBITURATES, UR NEGATIVE (NEGATIVE); BENZODIAZEPINES, UR NEGATIVE (NEGATIVE); OPIATES, UR NEGATIVE (NEGATIVE); PHENCYCLIDINE, UR NEGATIVE (NEGATIVE)
[2017-10-16] MEDS: Sodium Chloride 0.9% 1,000 ML IV SCH ×3 (02:35→20:16)
[2017-10-16 07:46] LABS: BASO % 0.1 % (0.0-2.0); HEMOGLOBIN 8.5 g/dL (11.0-16.0); LYMPH # 1.5 K/uL (1.0-4.3); LYMPH % 12.2 % (20.0-40.0); MEAN CELL VOLUME 63.8 fL (81.0-99.0); MEAN CORPUSCULAR HEMOGLOBIN 20.8 pg (27.0-31.0); MEAN CORPUSCULAR HGB CONC 32.6 g/dL (33.0-37.0); MEAN PLATELET VOLUME 9.3 fL (7.2-11.7); MONO # 0.6 K/uL (0.0-0.8); NEUT # 10.3 K/uL (1.8-7.0); NEUT % 82.7 % (50.0-75.0); NRBC % 0.1 % (0.0-2.0); RBC 4.07 Mil/uL (3.80-5.20); RED CELL DISTRIBUTION WIDTH 18.3 % (11.5-14.5); WHITE BLOOD COUNT 12.5 K/uL (4.8-10.8)
[2017-10-16 08:48] LABS: ALB/GLOB RATIO 1.1 (1.0-2.1); ALBUMIN 3.8 g/dL (3.5-5.0); ALT/SGPT 18 U/L (9-52); AST/SGOT 24 U/L (14-36); BLOOD UREA NITROGEN 10 mg/dL (7-17); CALCIUM 8.7 mg/dl (8.6-10.4); GFR NON-AFRICAN AMERICAN > 60
[2017-10-16] MEDS: Enoxaparin 40 mg Syringe SC SCH (09:37)
[2017-10-16] MEDS: Pantoprazole 40 mg EC Tab PO SCH (10:00)
[2017-10-16] MEDS ORDERED: Pneumococcal 23-Valent Vaccine IM ONE (10:00)
--- NOTE | 2017-10-16 15:39 | CARD ---
APPROVED REPORT Date of service: 10/14/2017 EKG Measurement Heart [id number] <Conclusion> Normal sinus rhythm Normal ECG
--- NOTE | 2017-10-16 17:15 | MRI ---
Date of service: 10/16/2017 PROCEDURE: MRI BRAIN WITHOUT CONTRAST HISTORY: evaluate for right side numbness COMPARISON: Noncontrast head CT 10/14/2017. TECHNIQUE: Multiplanar, multisequence MR images of the brain were obtained without intravenous contrast enhancement. FINDINGS: HEMORRHAGE: None DWI: No evidence of an acute or early subacute infarction. BRAIN PARENCHYMA: Intrinsic signal throughout the todd and white matter structures above below the tentorium appears within normal limits including the brainstem. There is no mass effect, parenchymal edema or loss of the corticomedullary differentiation. Midline brain anatomy appears within normal limits including the corpus callosum, brainstem and craniocervical junction. There is no suspicious extra-axial fluid collection identified. VENTRICLES: Unremarkable. No hydrocephalus. CRANIUM: Unremarkable. ORBITS: Grossly unremarkable. PARANASAL SINUSES/MASTOIDS: Clear VASCULAR SYSTEM: Skull base flow voids intact. OTHER FINDINGS: None. IMPRESSION: Stable, unremarkable non contrast enhanced MRI of the brain.
--- NOTE | 2017-10-16 17:41 | CP.PCM.PN ---
<Pavan Hutchison - Last Filed: 10/16/17 19:22> Subjective - Date & Time of Evaluation Date of Evaluation: 10/16/17 Time of Evaluation: 09:00 - Subjective Subjective: PGY 1 Medicine Progress Note for Dr. Gonzalez. Patient see and examined at bedside. Patient lying in bed, no acute distress. Patient still complains of abnormal sensation on R side of face associated with headache that has not improved. Patient also states she has some abdominal discomfort isloated to the upper quadrants bilaterally that is non radiating, intermittent, 5/10 in pain. Patient still states she feels like her R UE and R LE is heavier and weaker. Patient denies chest pain, SOB, constipation, trouble voiding, dizziness. Objective - Vital Signs/Intake and Output Vital Signs (last 24 hours): Temp Pulse Resp BP Pulse Ox 97.6 F 83 20 123/75 98 10/16/17 15:00 10/16/17 15:00 10/16/17 15:00 10/16/17 15:00 10/16/17 15:00 - Medications Medications: Current Medications Acetaminophen (Tylenol 325mg Tab) 650 mg PO Q6 PRN PRN Reason: Headache Last Admin: 10/16/17 09:36 Dose: 650 mg Aspirin (Aspirin Chewable) 81 mg PO DAILY [facility] Last Admin: 10/16/17 10:00 Dose: 81 mg Enoxaparin Sodium (Lovenox) 40 mg SC DAILY [facility] Last Admin: 10/16/17 09:37 Dose: 40 mg Sodium Chloride (Sodium Chloride 0.9%) 1,000 mls @ 100 mls/hr IV .Q10H [facility] Last Admin: 10/16/17 09:37 Dose: Not Given Pantoprazole Sodium (Protonix Ec Tab) 40 mg PO DAILY [facility] Last Admin: 10/16/17 10:00 Dose: 40 mg Rosuvastatin Calcium (Crestor) 10 mg PO HS [facility] Last Admin: 10/15/17 21:37 Dose: 10 mg - Labs Labs: 10/16/17 07:28 10/16/17 07:28 PT 11.4 SECONDS (9.7-12.2) 10/14/17 17:09 INR 1.0 10/14/17 17:09 APTT 27 SECONDS (21-34) 10/14/17 17:09 - Constitutional Appears: Non-toxic, No Acute Distress - Head Exam Head Exam: ATRAUMATIC, NORMAL INSPECTION, NORMOCEPHALIC - Eye Exam Eye Exam: EOMI, Normal appearance Pupil Exam: NORMAL ACCOMODATION - ENT Exam ENT Exam: Mucous Membranes Moist - Respiratory Exam Respiratory Exam: Clear to Ausculation Bilateral, NORMAL BREATHING PATTERN. absent: Rales, Rhonchi, Wheezes - Cardiovascular Exam Cardiovascular Exam: +S1, +S2. absent: Irregular Rhythm, Murmur - GI/Abdominal Exam GI & Abdominal Exam: Normal Bowel Sounds. absent: Distended, Firm, Guarding Additional comments: tenderness on palpation in upper quadrants - Extremities Exam Extremities Exam: Full ROM, Normal Inspection. absent: Calf Tenderness, Pedal Edema - Neurological Exam Neurological Exam: Alert, Awake, Oriented x3 Additional comments: R sales leader strength < L side. R LE < L LE in strength R UE < R LE in strength - Psychiatric Exam Psychiatric exam: Normal Affect, Normal Mood - Skin Skin Exam: Dry, Intact, Normal Color, Warm Assessment and Plan - Assessment and Plan (Free Text) Assessment: 42 yr female w/ PMHX asthma presented with headache & R sided weakness: Heach/R-sided facial numbness/R-sided leg weakness Current Management: - Follow Neuro recs: Continued headaches s/p decadron, depakote, & magneisum - Possible headache due to increased ICP, consider LP - F/u PT & OT recs On admission pt was code stroke & consulted Dr. Childers, Neuro - Patient not a candidate for tPA - Patient tx'd with mg, depakote, decadron, aspirin, toradol, reglan and IVF in ED - follow up recs. Imaging: MRI: unremarkable, stable Head CT w/o 10/14: No acute intracranial hemorrhage. Note that the possibility of a small hyperacute infarct cannot be excluded on this exam. Head CTA 10/14: Normal CT Angiography of the neck. CXR 10/14:Poor inspiration with low lung volumes, crowded bronchovascular markings and mild bibasilar atelectasis. Current Medications: - Aspirin 81 mg daily - Enoxaparin 40 mg SC - Protonix 40 mg daily - Crestor 10 mg PO Prophylactic Care Lovenox 40mg SC daily Case discussed with Dr. Gonzalez <Joseph Gonzalez - Last Filed: 10/17/17 07:37> Objective - Vital Signs/Intake and Output Vital Signs (last 24 hours): Temp Pulse Resp BP Pulse Ox 98.2 F 64 20 135/86 96 10/17/17 04:10 10/17/17 04:10 10/17/17 04:10 10/17/17 04:10 10/17/17 04:10 Intake and Output: 10/17/17 10/17/17 06:59 18:59 Intake Total 800 Balance 800 - Medications Medications: Current Medications Acetaminophen (Tylenol 325mg Tab) 650 mg PO Q6 PRN PRN Reason: Headache Last Admin: 10/16/17 09:36 Dose: 650 mg Aspirin (Aspirin Chewable) 81 mg PO DAILY [facility] Last Admin: 10/16/17 10:00 Dose: 81 mg Enoxaparin Sodium (Lovenox) 40 mg SC DAILY [facility] Last Admin: 10/16/17 09:37 Dose: 40 mg Sodium Chloride (Sodium Chloride 0.9%) 1,000 mls @ 100 mls/hr IV .Q10H [facility] Last Admin: 10/17/17 05:15 Dose: 100 mls/hr Pantoprazole Sodium (Protonix Ec Tab) 40 mg PO DAILY [facility] Last Admin: 10/16/17 10:00 Dose: 40 mg Rosuvastatin Calcium (Crestor) 10 mg PO HS [facility] Last Admin: 10/16/17 22:08 Dose: 10 mg - Labs Labs: 10/16/17 07:28 10/16/17 07:28 PT 11.4 SECONDS (9.7-12.2) 10/14/17 17:09 INR 1.0 10/14/17 17:09 APTT 27 SECONDS (21-34) 10/14/17 17:09 Attending/Attestation - Attestation I have personally seen and examined this patient.: Yes I have fully participated in the care of the patient.: Yes I have reviewed all pertinent clinical information, including history, physical exam and plan: Yes Notes (Text): Medical attending: Patient was seen and examined by me. Agree with the above note by the resident. The patient was again reporting to have the facial numbness and facial heaviness on the right side. Otherwise CN 2-12 intact and EOMI intact on exam. No facial droop, no manuel ein speech. When we saw her in the morning we were still pending the MRI as well as the echo. She is on ASA, statin. The CT of the head and CTA of head and neck were stable. Joseph Gonzalez
--- NOTE | 2017-10-16 17:54 | CP.PCM.PN ---
Subjective - Date & Time of Evaluation Date of Evaluation: 10/16/17 Time of Evaluation: 17:52 - Subjective Subjective: Neurology Progress Note - Alvarado Patient seen and examined at bedside. Per nursing no acute events overnight. Patient states that she is still experiencing right facial numbness, right lower extremity numbness and weakness. She reports having a headache this morning that was mostly right sided and described it as a pressure-like sensation. States that the IV medication did not provide her with relief. Tolerated lunch well. Objective - Vital Signs/Intake and Output Vital Signs (last 24 hours): Temp Pulse Resp BP Pulse Ox 97.6 F 83 20 123/75 98 10/16/17 15:00 10/16/17 15:00 10/16/17 15:00 10/16/17 15:00 10/16/17 15:00 - Medications Medications: Current Medications Acetaminophen (Tylenol 325mg Tab) 650 mg PO Q6 PRN PRN Reason: Headache Last Admin: 10/16/17 09:36 Dose: 650 mg Aspirin (Aspirin Chewable) 81 mg PO DAILY [facility] Last Admin: 10/16/17 10:00 Dose: 81 mg Enoxaparin Sodium (Lovenox) 40 mg SC DAILY [facility] Last Admin: 10/16/17 09:37 Dose: 40 mg Sodium Chloride (Sodium Chloride 0.9%) 1,000 mls @ 100 mls/hr IV .Q10H [facility] Last Admin: 10/16/17 09:37 Dose: Not Given Pantoprazole Sodium (Protonix Ec Tab) 40 mg PO DAILY [facility] Last Admin: 10/16/17 10:00 Dose: 40 mg Rosuvastatin Calcium (Crestor) 10 mg PO HS [facility] Last Admin: 10/15/17 21:37 Dose: 10 mg - Labs Labs: 10/16/17 07:28 10/16/17 07:28 PT 11.4 SECONDS (9.7-12.2) 10/14/17 17:09 INR 1.0 10/14/17 17:09 APTT 27 SECONDS (21-34) 10/14/17 17:09 - Constitutional Appears: Non-toxic - Head Exam Head Exam: ATRAUMATIC, NORMAL INSPECTION - Eye Exam Eye Exam: EOMI, Normal appearance - ENT Exam ENT Exam: Mucous Membranes Moist - Neck Exam Neck Exam: Full ROM - Respiratory Exam Respiratory Exam: NORMAL BREATHING PATTERN - Cardiovascular Exam Cardiovascular Exam: REGULAR RHYTHM - GI/Abdominal Exam GI & Abdominal Exam: Soft - Neurological Exam Neurological Exam: Alert, Awake, CN II-XII Intact, Oriented x3 - Psychiatric Exam Psychiatric exam: Normal Affect, Normal Mood - Skin Skin Exam: Normal Color, Warm Assessment and Plan - Assessment and Plan (Free Text) Assessment: Complicated Migraine -Stable, afebrile -CT head and CTA head/neck were unremarkable -Brain MRI unremarkable as well -Right sided numbness likely due to complicated migraine -Continue IV fluid hydration -Patient still with headaches, s/p decadron, depakote and magnesium sulfate with no improvement -Headaches could be due to increased ICP -May consider for possible LP if no improvement in symptoms -PT evaluation Plan discussed with Dr Alvarado Li DO PGY-2
[2017-10-17] MEDS: Sodium Chloride 0.9% 1,000 ML IV SCH ×2 (05:15→14:43)
[2017-10-17 08:02] LABS: BASO # 0.1 K/uL (0.0-0.2); EOS # 0.2 K/uL (0.0-0.7); EOS % 2.1 % (0.0-4.0); HEMOGLOBIN 8.4 g/dL (11.0-16.0); LYMPH # 2.3 K/uL (1.0-4.3); LYMPH % 25.5 % (20.0-40.0); MEAN CELL VOLUME 65.1 fL (81.0-99.0); MEAN CORPUSCULAR HEMOGLOBIN 20.7 pg (27.0-31.0); MEAN CORPUSCULAR HGB CONC 31.9 g/dL (33.0-37.0); MEAN PLATELET VOLUME 9.2 fL (7.2-11.7); MONO # 0.6 K/uL (0.0-0.8); MONO % 6.8 % (0.0-10.0); NEUT # 5.9 K/uL (1.8-7.0); NEUT % 64.6 % (50.0-75.0); RBC 4.07 Mil/uL (3.80-5.20); RED CELL DISTRIBUTION WIDTH 18.3 % (11.5-14.5); WHITE BLOOD COUNT 9.2 K/uL (4.8-10.8)
[2017-10-17 08:17] LABS: ALB/GLOB RATIO 1.1 (1.0-2.1); ALBUMIN 3.7 g/dL (3.5-5.0); ALT/SGPT 17 U/L (9-52); AST/SGOT 27 U/L (14-36); BLOOD UREA NITROGEN 14 mg/dL (7-17); CALCIUM 8.6 mg/dl (8.6-10.4); GFR NON-AFRICAN AMERICAN > 60
[2017-10-17 08:38] VITALS: O2SAT 98
--- NOTE | 2017-10-17 10:13 | CP.PCM.PN ---
Subjective - Date & Time of Evaluation Date of Evaluation: 10/17/17 Time of Evaluation: 10:10 - Subjective Subjective: Neurology Progress Note - Dr Childers Patient seen and examined at bedside. Per nursing no acute events overnight. Patient states that the right facial numbness has improved but she is experiencing tingling. She also reports that the right lower extremity numbness and weakness persist. She states that she is still having right sided, pressure- like headache. Rates that pain a 5/10 on pain scale. Denies any vision changes. Objective - Vital Signs/Intake and Output Vital Signs (last 24 hours): Temp Pulse Resp BP Pulse Ox 98.1 F 61 20 125/85 98 10/17/17 08:37 10/17/17 08:37 10/17/17 08:37 10/17/17 08:37 10/17/17 08:37 Intake and Output: 10/17/17 10/17/17 06:59 18:59 Intake Total 800 Balance 800 - Medications Medications: Current Medications Acetaminophen (Tylenol 325mg Tab) 650 mg PO Q6 PRN PRN Reason: Headache Last Admin: 10/16/17 09:36 Dose: 650 mg Aspirin (Aspirin Chewable) 81 mg PO DAILY [facility] Last Admin: 10/16/17 10:00 Dose: 81 mg Enoxaparin Sodium (Lovenox) 40 mg SC DAILY [facility] Last Admin: 10/16/17 09:37 Dose: 40 mg Sodium Chloride (Sodium Chloride 0.9%) 1,000 mls @ 100 mls/hr IV .Q10H [facility] Last Admin: 10/17/17 05:15 Dose: 100 mls/hr Pantoprazole Sodium (Protonix Ec Tab) 40 mg PO DAILY [facility] Last Admin: 10/16/17 10:00 Dose: 40 mg Rosuvastatin Calcium (Crestor) 10 mg PO HS [facility] Last Admin: 10/16/17 22:08 Dose: 10 mg - Labs Labs: 10/17/17 07:43 10/17/17 07:43 PT 11.4 SECONDS (9.7-12.2) 10/14/17 17:09 INR 1.0 10/14/17 17:09 APTT 27 SECONDS (21-34) 10/14/17 17:09 - Constitutional Appears: Non-toxic, No Acute Distress - Head Exam Head Exam: ATRAUMATIC, NORMAL INSPECTION - Eye Exam Eye Exam: EOMI, Normal appearance Pupil Exam: NORMAL ACCOMODATION - ENT Exam ENT Exam: Mucous Membranes Moist - Neck Exam Neck Exam: Full ROM - Neurological Exam Neurological Exam: Alert, Awake, Oriented x3 Neuro motor strength exam: Left Upper Extremity: 5, Right Upper Extremity: 4, Left Lower Extremity: 5, Right Lower Extremity: 3 Additional comments: Decreased sensation to right face and right leg - Psychiatric Exam Psychiatric exam: Normal Mood - Skin Skin Exam: Dry, Intact, Warm Assessment and Plan - Assessment and Plan (Free Text) Assessment: Complicated Migraine -Stable, afebrile -CT head and CTA head/neck were unremarkable -Brain MRI unremarkable as well -Right sided numbness likely due to complicated migraine -Continue IV fluid hydration -Patient still with headaches, s/p decadron, depakote and magnesium sulfate with no improvement -PT evaluation Plan discussed with Dr Mario Li DO PGY-2
[2017-10-17] MEDS: Enoxaparin 40 mg Syringe SC SCH (10:15)
[2017-10-17] MEDS: Pantoprazole 40 mg EC Tab PO SCH (10:15)
--- NOTE | 2017-10-17 15:13 | CARD ---
APPROVED REPORT Date of service: 10/17/2017 EXAM: Two-dimensional and M-mode echocardiogram with Doppler and color Doppler. Other Information Quality : GoodRhythm : INDICATION CVA/TIA 2D DIMENSIONS IVSd1.0 (0.7-1.1cm)LVDd4.7 (3.9-5.9cm) PWd1.0 (0.7-1.1cm)LVDs2.6 (2.5-4.0cm) FS (%) 45.1 %LVEF (%)76.5 (>50%) M-Mode DIMENSIONS Left Atrium (MM)4.05 (2.5-4.0cm)IVSd1.17 (0.7-1.1cm) Aortic Root2.92 (2.2-3.7cm)LVDd5.42 (4.0-5.6cm) Aortic Cusp Exc.2.10 (1.5-2.0cm)PWd0.86 (0.7-1.1cm) FS (%) 40 %LVDs3.25 (2.0-3.8cm) LVEF (%)70 (>50%) Aortic Valve AI P 1/2 [id number] Mitral Valve MV E Jclaggww827.1cm/sMV A Udycxnvz04.7cm/sE/A ratio1.5 TDI E/Lateral E'0.0E/Medial E'0.0 Tricuspid Valve TR Peak [id number]/sTR Peak Gr.[id number] LEFT VENTRICLE The left ventricle is normal size. There is normal left ventricular wall thickness. The left ventricular function is normal. The left ventricular ejection fraction is within the normal range. There is normal LV segmental wall motion. The left ventricular diastolic function is normal. RIGHT VENTRICLE The right ventricle is normal size. There is normal right ventricular wall thickness. The right ventricular systolic function is normal. ATRIA The left atrium size is normal. The right atrium size is normal. AORTIC VALVE The aortic valve is normal in structure. There is trace to mild aortic regurgitation. There is no aortic valvular stenosis. MITRAL VALVE The mitral valve is normal in structure. There is no mitral valve regurgitation noted. TRICUSPID VALVE The tricuspid valve is normal in structure. There is mild tricuspid regurgitation. Right ventricular systolic pressure is estimated at less than 30 mmHg. PULMONIC VALVE The pulmonary valve is normal in structure. GREAT VESSELS The aortic root is normal in size. The IVC is normal in size and collapses >50% with inspiration. PERICARDIAL EFFUSION There is no pericardial effusion. <Conclusion> Normal bi-ventricular function. There is trace to mild aortic regurgitation. The aortic valve is normal in structure. There is mild tricuspid regurgitation. Right ventricular systolic pressure is normal. There is no pericardial effusion.
[2017-10-17 17:00] VITALS: PULSE 87
[2017-10-17 18:05] VITALS: BP 105/63; TEMP 97.4
--- NOTE | 2017-10-17 19:30 | CP.PCM.DIS ---
<Diogo Hercules - Last Filed: 10/17/17 19:39> Provider - Provider Date of Admission: 10/14/17 18:08 Attending physician: Joseph Gonzalez DO Consults: Neuro: Dr. Childers Time Spent in preparation of Discharge (in minutes): 45 Diagnosis - Discharge Diagnosis (1) Migraine Status: Acute Priority: Medium (2) Headache Status: Acute Priority: Medium Hospital Course - Lab Results Lab Results: Most Recent Lab Values WBC 9.2 K/uL (4.8-10.8) 10/17/17 07:43 RBC 4.07 Mil/uL (3.80-5.20) 10/17/17 07:43 Hgb 8.4 g/dL (11.0-16.0) L 10/17/17 07:43 Hct 26.5 % (34.0-47.0) L 10/17/17 07:43 MCV 65.1 fL (81.0-99.0) L 10/17/17 07:43 MCH 20.7 pg (27.0-31.0) L 10/17/17 07:43 MCHC 31.9 g/dL (33.0-37.0) L 10/17/17 07:43 RDW 18.3 % (11.5-14.5) H 10/17/17 07:43 Plt Count 339 K/uL (130-400) 10/17/17 07:43 MPV 9.2 fL (7.2-11.7) 10/17/17 07:43 Neut % (Auto) 64.6 % (50.0-75.0) 10/17/17 07:43 Lymph % (Auto) 25.5 % (20.0-40.0) 10/17/17 07:43 Cloud % (Auto) 6.8 % (0.0-10.0) 10/17/17 07:43 Eos % (Auto) 2.1 % (0.0-4.0) 10/17/17 07:43 Baso % (Auto) 1.0 % (0.0-2.0) 10/17/17 07:43 Neut # (Auto) 5.9 K/uL (1.8-7.0) 10/17/17 07:43 Lymph # (Auto) 2.3 K/uL (1.0-4.3) 10/17/17 07:43 Cloud # (Auto) 0.6 K/uL (0.0-0.8) 10/17/17 07:43 Eos # (Auto) 0.2 K/uL (0.0-0.7) 10/17/17 07:43 Baso # (Auto) 0.1 K/uL (0.0-0.2) 10/17/17 07:43 Differential Comment 10/14/17 17:09 PT 11.4 SECONDS (9.7-12.2) 10/14/17 17:09 INR 1.0 10/14/17 17:09 APTT 27 SECONDS (21-34) 10/14/17 17:09 Sodium 140 mmol/L (132-148) 10/17/17 07:43 Potassium 3.8 mmol/L (3.6-5.2) 10/17/17 07:43 Chloride 104 mmol/L (98-107) 10/17/17 07:43 Carbon Dioxide 29 mmol/L (22-30) 10/17/17 07:43 Anion Gap 11 (10-20) 10/17/17 07:43 BUN 14 mg/dL (7-17) 10/17/17 07:43 Creatinine 0.7 mg/dL (0.7-1.2) 10/17/17 07:43 Est GFR ( Amer) > 60 10/17/17 07:43 Est GFR (Non-Af Amer) > 60 10/17/17 07:43 POC Glucose (mg/dL) 113 mg/dL (65-110) H 10/17/17 16:06 Random Glucose 100 mg/dL (65-105) 10/17/17 07:43 Hemoglobin A1c 5.3 % (4.2-6.5) 10/14/17 17:09 Calcium 8.6 mg/dl (8.6-10.4) 10/17/17 07:43 Total Bilirubin 0.2 mg/dL (0.2-1.3) 10/17/17 07:43 AST 27 U/L (14-36) 10/17/17 07:43 ALT 17 U/L (9-52) 10/17/17 07:43 Alkaline Phosphatase 82 U/L (38-126) 10/17/17 07:43 Troponin I < 0.0120 ng/mL (0.00-0.120) 10/14/17 17:09 Total Protein 7.1 g/dL (6.3-8.3) 10/17/17 07:43 Albumin 3.7 g/dL (3.5-5.0) 10/17/17 07:43 Globulin 3.4 gm/dL (2.2-3.9) 10/17/17 07:43 Albumin/Globulin Ratio 1.1 (1.0-2.1) 10/17/17 07:43 Triglycerides 197 mg/dL (0-149) H 10/14/17 17:09 Cholesterol 192 mg/dL (0-199) 10/14/17 17:09 LDL Cholesterol Direct 101 mg/dL (0-129) 10/14/17 17:09 HDL Cholesterol 63 mg/dL (30-70) 10/14/17 17:09 Urine Opiates Screen Negative (NEGATIVE) 10/15/17 19:17 Urine Methadone Screen Negative (NEGATIVE) 10/15/17 19:17 Ur Barbiturates Screen Negative (NEGATIVE) 10/15/17 19:17 Ur Phencyclidine Scrn Negative (NEGATIVE) 10/15/17 19:17 Ur Amphetamines Screen Negative (NEGATIVE) 10/15/17 19:17 U Benzodiazepines Scrn Negative (NEGATIVE) 10/15/17 19:17 U Oth Cocaine Metabols Negative (NEGATIVE) 10/15/17 19:17 U Cannabinoids Screen Negative (NEGATIVE) 10/15/17 19:17 Blood Type A POSITIVE 10/14/17 17:09 Antibody Screen Negative 10/14/17 17:09 - Hospital Course Hospital Course: Diogo Hercules PGY1 - Discharge Summary Hospital Course For Dr. Gonzalez Patient is a 42 year old female with a past medical history of asthma, gastric sleeve (2015), tummy tuck (2013), who presented to the emergency department with a complaint of a headache with right sided facial numbness and right leg weakness on 10/14/17. The symptoms started with a headache the night prior. Patient woke up with facial numbness and weakness around 9AM on day of admission. She attempted to take a Tylenol without improvement. Patient has never experienced these symptoms in the past. Patient denied fevers, chills, nausea, vomiting, diarrhea, constipation, chest pain, shortness of breath, abdominal pain, tremors, bladder/bowel incontinence. While in the emergency department, a code stroke was as activated. The patient was not a candidate for tPA. Neurology (Dr. Childers) was consulted and recommended treatment with Mg, depakote, decadron, aspirin, toradol, reglan and IVF, which were administered to the patient. Subsequently, patient reported that all of her symptoms have resolved and she currently states she is "back to normal." Patient was subsequently admitted for further evaluation of right sided weakness. Please see chart for full details. During her stay, Chest X-ray was obtained and per report, revealed poor inspiration with low lung volumes, crowded bronchovascular markings and mild bibasilar atelectasis. CT head without contrast was obtained and revealed no intracranial hemorrhage, and reportedly there was a possibility of a small hyperacute infarct that could not be excluded. Head CTA was obtained and was void of acute abnormalities. Per neurology recommendations, the patient was started on Aspirin 81mg daily. Permissive HTN was allowed. MRI was obtained and was unremarkable. Patient's right-sided numbness is possibly related to complicated migraine, headaches could be due to increased ICP, per neurology. Physical exam was unremarkable for focal neurological changes. Of note, the patient was found to have leukocytosis on CBC, however likely reaction from receiving dose of decadron. ECHO was obtained and revealed normal bi- ventricular function, [id number] aortic regurgitation. The aortic valve is normal in structure, mild tricuspid regurg, rigth ventricular systolic pressure is normal, no pericardial effusion, LVEF= 70 (>50%). During her stay, the patient was treated with Enoxaparin 40mg SC, Crestor 10mg PO, and Protonix 40mg daily. On the day of discharge, the patient was doing well, though she still complained of difficulty walking and some weakness in her right lower extremity. Patient otherwise denied fevers, chills, nausea, vomiting, diarrhea, constipation, chest pain, shortness of breath, abdominal pain, tremors, bladder/ bowel incontinence. Patient was hemodynamically stable, and was able to walk with assistance prior to discharge. Gait was improved since the day prior, but not back to baseline. In-patient PT was denied by patient, and she requested to go home with home PT, which was arranged by case management. Furthermore, patient was arranged to get rolling walker to assist with walking. Per Neurology , patient's symptoms may be due to complicated migraine. Patient was cleared for discharge by Neurology and was medically optimized for discharge, per Dr. Gonzalez. Patient is to follow up with her primary care physician within 3-5 days. Patient is to continue with all medications prescribed to her. Please see discharge instructions for details. Patient was given both verbal and written instructions. All instructions explained to the patient in detail. Patient both understand and agrees to all instructions. Please see full chart for more detail. Discharge Medications: - ASA 81mg PO daily - Rosuvastatin 10mg PO HS Discharge Instructions: Patient is medically stable for discharge, per Dr. Gonzalez D.O. Patient is to receive PT at home upon discharge Patient was given a script for a walking cane to assist with ambulation. Patient is to return to the ED if symptoms return and/or worsen. Patient is to follow-up with primary care physician within 3-5 days from discharge Patient was discharged on the following medications: - Aspirin 81 mg 1 tab by mouth daily - Crestor 10 mg 1 tab by mouth daily Patient seen and case discussed in detail with Attending Physician, Dr. Lisa Hercules PGY1 Discharge Exam - Additional Findings Additional findings: - Constitutional Appears: Non-toxic, No Acute Distress - Head Exam Head Exam: ATRAUMATIC, NORMAL INSPECTION - Eye Exam Eye Exam: EOMI, Normal appearance Pupil Exam: NORMAL ACCOMODATION - ENT Exam ENT Exam: Mucous Membranes Moist - Neck Exam Neck Exam: Full ROM - Respiratory Exam Respiratory Exam: Clear to Ausculation Bilateral, NORMAL BREATHING PATTERN. absent: Rales, Rhonchi, Wheezes - Cardiovascular Exam Cardiovascular Exam: +S1, +S2. absent: Irregular Rhythm, Murmur - GI/Abdominal Exam GI & Abdominal Exam: Normal Bowel Sounds. absent: Distended, Firm, Guarding - Neurological Exam Neurological Exam: Alert, Awake, Oriented x3 Neuro motor strength exam: Left Upper Extremity: 5, Right Upper Extremity: 4, Left Lower Extremity: 5, Right Lower Extremity: 3 Additional comments: Decreased sensation to right face and right leg - Psychiatric Exam Psychiatric exam: Normal Mood - Skin Skin Exam: Dry, Intact, Warm Discharge Plan - Discharge Medications Prescriptions: Rosuvastatin Calcium [Crestor] 10 mg PO HS #30 tab - Follow Up Plan Condition: STABLE Disposition: HOME/ ROUTINE Instructions: Transient Ischemic Attack (DC), Headache, Adult (DC), Rosuvastatin Additional Instructions: Patient is medically stable for discharge, per Dr. Lisa Jesus. Patient is to receive PT at home upon discharge Patient was given a script for a walking cane to assist with ambulation. Patient is to return to the ED if symptoms return and/or worsen. Patient is to follow-up with primary care physician within 3-5 days from discharge Patient was discharged on the following medications: - Aspirin 81 mg 1 tab by mouth daily - Crestor 10 mg 1 tab by mouth daily <Joseph Gonzalez - Last Filed: 10/18/17 07:47> Provider - Provider Date of Admission: 10/14/17 18:08 Attending physician: Joseph Gonzalez DO Hospital Course - Lab Results Lab Results: Most Recent Lab Values WBC 9.2 K/uL (4.8-10.8) 10/17/17 07:43 RBC 4.07 Mil/uL (3.80-5.20) 10/17/17 07:43 Hgb 8.4 g/dL (11.0-16.0) L 10/17/17 07:43 Hct 26.5 % (34.0-47.0) L 10/17/17 07:43 MCV 65.1 fL (81.0-99.0) L 10/17/17 07:43 MCH 20.7 pg (27.0-31.0) L 10/17/17 07:43 MCHC 31.9 g/dL (33.0-37.0) L 10/17/17 07:43 RDW 18.3 % (11.5-14.5) H 10/17/17 07:43 Plt Count 339 K/uL (130-400) 10/17/17 07:43 MPV 9.2 fL (7.2-11.7) 10/17/17 07:43 Neut % (Auto) 64.6 % (50.0-75.0) 10/17/17 07:43 Lymph % (Auto) 25.5 % (20.0-40.0) 10/17/17 07:43 Cloud % (Auto) 6.8 % (0.0-10.0) 10/17/17 07:43 Eos % (Auto) 2.1 % (0.0-4.0) 10/17/17 07:43 Baso % (Auto) 1.0 % (0.0-2.0) 10/17/17 07:43 Neut # (Auto) 5.9 K/uL (1.8-7.0) 10/17/17 07:43 Lymph # (Auto) 2.3 K/uL (1.0-4.3) 10/17/17 07:43 Cloud # (Auto) 0.6 K/uL (0.0-0.8) 10/17/17 07:43 Eos # (Auto) 0.2 K/uL (0.0-0.7) 10/17/17 07:43 Baso # (Auto) 0.1 K/uL (0.0-0.2) 10/17/17 07:43 Differential Comment 10/14/17 17:09 PT 11.4 SECONDS (9.7-12.2) 10/14/17 17:09 INR 1.0 10/14/17 17:09 APTT 27 SECONDS (21-34) 10/14/17 17:09 Sodium 140 mmol/L (132-148) 10/17/17 07:43 Potassium 3.8 mmol/L (3.6-5.2) 10/17/17 07:43 Chloride 104 mmol/L (98-107) 10/17/17 07:43 Carbon Dioxide 29 mmol/L (22-30) 10/17/17 07:43 Anion Gap 11 (10-20) 10/17/17 07:43 BUN 14 mg/dL (7-17) 10/17/17 07:43 Creatinine 0.7 mg/dL (0.7-1.2) 10/17/17 07:43 Est GFR ( Amer) > 60 10/17/17 07:43 Est GFR (Non-Af Amer) > 60 10/17/17 07:43 POC Glucose (mg/dL) 113 mg/dL (65-110) H 10/17/17 16:06 Random Glucose 100 mg/dL (65-105) 10/17/17 07:43 Hemoglobin A1c 5.3 % (4.2-6.5) 10/14/17 17:09 Calcium 8.6 mg/dl (8.6-10.4) 10/17/17 07:43 Total Bilirubin 0.2 mg/dL (0.2-1.3) 10/17/17 07:43 AST 27 U/L (14-36) 10/17/17 07:43 ALT 17 U/L (9-52) 10/17/17 07:43 Alkaline Phosphatase 82 U/L (38-126) 10/17/17 07:43 Troponin I < 0.0120 ng/mL (0.00-0.120) 10/14/17 17:09 Total Protein 7.1 g/dL (6.3-8.3) 10/17/17 07:43 Albumin 3.7 g/dL (3.5-5.0) 10/17/17 07:43 Globulin 3.4 gm/dL (2.2-3.9) 10/17/17 07:43 Albumin/Globulin Ratio 1.1 (1.0-2.1) 10/17/17 07:43 Triglycerides 197 mg/dL (0-149) H 10/14/17 17:09 Cholesterol 192 mg/dL (0-199) 10/14/17 17:09 LDL Cholesterol Direct 101 mg/dL (0-129) 10/14/17 17:09 HDL Cholesterol 63 mg/dL (30-70) 10/14/17 17:09 Urine Opiates Screen Negative (NEGATIVE) 10/15/17 19:17 Urine Methadone Screen Negative (NEGATIVE) 10/15/17 19:17 Ur Barbiturates Screen Negative (NEGATIVE) 10/15/17 19:17 Ur Phencyclidine Scrn Negative (NEGATIVE) 10/15/17 19:17 Ur Amphetamines Screen Negative (NEGATIVE) 10/15/17 19:17 U Benzodiazepines Scrn Negative (NEGATIVE) 10/15/17 19:17 U Oth Cocaine Metabols Negative (NEGATIVE) 10/15/17 19:17 U Cannabinoids Screen Negative (NEGATIVE) 10/15/17 19:17 Blood Type A POSITIVE 10/14/17 17:09 Antibody Screen Negative 10/14/17 17:09 Attending/Attestation - Attestation I have personally seen and examined this patient.: Yes I have fully participated in the care of the patient.: Yes I have reviewed all pertinent clinical information, including history, physical exam and plan: Yes Notes (Text): 10/18/17 07:47 Medical attending: Patient was seen and examined by me, agrees the above note by the medical technologist blood bank. The patient has underwent both CT scan of the head, CTA of head and neck, as well as MRI brain. She did not have any findings that would suggest a CVA. She also underwent an echo as well. Blood pressure is stable, also he had or been evaluated by physical therapy. She has the ability to stand up and walk however she does have weakness. Ideally I would like for her to go to subacute rehabilitation since her gait was not entirely back to baseline, however it was improved since coming to the hospital. As documented in previous notes the patient is able to raise her arm and raise her right leg greater than 5 seconds without any drifting however she says always feels heavy to her she also has some minimal right-sided facial heaviness as well. However we do not see any facial drooping neurology who suggested that this may represent some type of a migraine. Today she asked about going home yet with home physical therapy. Her other family members were present as well and participated with the discussion The patient should be on aspirin as well as a statin medication Thank you very much, Joseph Gonzalez
== END 2017-10-17 16:45 | disposition home or self-care (01) ==
LOC: C.ER 16:02 → C.9E 18:08 → C.6T 18:44
PROVIDERS: ADMIT Hospitalist; ATTEND Hospitalist
DX: G43.109 Migraine with aura, not intractable, without status migrainosus (principal); D72.829 Elevated white blood cell count, unspecified; I10 Essential (primary) hypertension; J45.909 Unspecified asthma, uncomplicated; J98.11 Atelectasis; Z83.3 Family history of diabetes mellitus; Z82.49 Family history of ischemic heart disease and other diseases of the circulatory system; E78.00 Pure hypercholesterolemia, unspecified
CPT/HCPCS: 36415; 70450; 70496; 70498; 70551; 71045; 80053; 80061; 80324; 80345; 80346; 80349; 80353; 80358; 80361; 82948; 83036; 83992; 84484; 85025; 85610; 85730; 86850; 86900; 93005; 93306; 96360; 96361; 96365; 96374; 97116; 97162; 97166; 97530; 99285; G0378; G8978; G8979; G8987; G8988; J1100; J1650; J1885; J2765; J3475; J7030; Q9967

== ENCOUNTER 2018-05-08 09:22 | Emergency (ER) | payer MEDICAID ==
[2018-05-08 09:22] VITALS: BMI 47.3
[2018-05-08 09:53] VITALS: RESP 18
[2018-05-08] MEDS ORDERED: Sodium Chloride 0.9% 1,000 ML IV ONE (09:54)
[2018-05-08] MEDS ORDERED: Sodium Chloride 0.9% 1,000 ML ONE (10:04)
[2018-05-08 10:26] LABS: HCG,QUALITATIVE URINE NEGATIVE (NEGATIVE)
[2018-05-08 10:31] LABS: BASO % 0.5 % (0.0-2.0); EOS # 0.1 K/uL (0.0-0.7); EOS % 2.1 % (0.0-4.0); HEMOGLOBIN 13.1 g/dL (11.0-16.0); LYMPH # 0.8 K/uL (1.0-4.3); LYMPH % 11.7 % (20.0-40.0); MEAN CELL VOLUME 87.2 fL (81.0-99.0); MEAN CORPUSCULAR HEMOGLOBIN 30.1 pg (27.0-31.0); MEAN CORPUSCULAR HGB CONC 34.5 g/dL (33.0-37.0); MEAN PLATELET VOLUME 9.1 fL (7.2-11.7); MONO # 0.7 K/uL (0.0-0.8); MONO % 10.2 % (0.0-10.0); NEUT % 75.5 % (50.0-75.0); RBC 4.36 Mil/uL (3.80-5.20); RED CELL DISTRIBUTION WIDTH 14.1 % (11.5-14.5); WHITE BLOOD COUNT 6.7 K/uL (4.8-10.8)
[2018-05-08 10:34] LABS: SQUAMOUS EPITHIAL 11 /hpf (0-5); URINE BILIRUBIN NEGATIVE (NEGATIVE); URINE BLOOD NEGATIVE (NEGATIVE); URINE CLARITY Hazy (Clear); URINE COLOR Yellow (YELLOW); URINE GLUCOSE (UA) NORMAL (Normal); URINE LEUKOCYTE ESTERASE 3+ Leu/uL (Negative); URINE PROTEIN NEGATIVE (NEGATIVE); URINE URIC ACID CRYSTALS OCC /hpf (<OCC); URINE UROBILINOGEN NORMAL mg/dL (0.2-1.0)
--- NOTE | 2018-05-08 10:36 | C.PDOC ---
History Of Present Illness 42 y/o female with a PMHx of asthma, otherwise well, presents to the ED with complaints of generalized malaise, body aches, cough, and back pain with deep inspiration for the past few days. Associated with abdominal pain, nausea, vom iting, and diarrhea. Patient did not take her temp at home but felt feverish. Last episode of diarrhea was yesterday, last vomiting this morning. Abdominal pain is described as colicky in nature, diffuse, comes and goes. Otherwise patient denies any headache, dizziness, neck pain or stiffness, chills, or SOB. Time Seen by Provider: 05/08/18 09:38 Chief Complaint (Nursing): GI Problem History Per: Patient History/Exam Limitations: no limitations Onset/Duration Of Symptoms: Days Current Symptoms Are (Timing): Still Present Location Of Pain/Discomfort: Diffuse Quality Of Discomfort: Cramping Associated Symptoms: Fever, Nausea, Vomiting, Diarrhea, Back Pain Alleviating Factors: None Last Bowel Movement: Yesterday Past Medical History Reviewed: Historical Data, Nursing Documentation, Vital Signs Vital Signs: Last Vital Signs Temp 98.1 F 05/08/18 09:41 Pulse 73 05/08/18 09:41 Resp 18 05/08/18 09:41 BP 116/70 05/08/18 09:41 Pulse Ox 98 05/08/18 09:41 - Medical History PMH: Asthma, Depression (resolved), HTN, Hypercholesterolemia Denies: Chronic Kidney Disease Surgical History: Endoscopy - [facility] Procedures ESOPHAGOGASTRODUODENOSCOPY [EGD] W/CLOSED BIOPSY (01/29/14) EXCISION OF STOMACH, ENDO, DIAGN (04/15/15) LAPAROSCOPIC REPAIR OF DIAPHRAGMATIC HRN, ABDOMINAL APPROACH (07/29/14) LAPAROSCOPIC ROBOTIC ASSISTED PROCEDURE (07/29/14) LAPAROSCOPIC VERTICAL (SLEEVE) GASTRECTOMY (07/29/14) OTHER GASTROSCOPY (07/29/14) Family History: States: Diabetes, Hypertension - Social History Hx Tobacco Use: No Hx Alcohol Use: No Hx Substance Use: No - Immunization History Hx Tetanus Toxoid Vaccination: No Hx Influenza Vaccination: Yes Hx Pneumococcal Vaccination: No Review Of Systems Except As Marked, All Systems Reviewed And Found Negative. Constitutional: Positive for: Fever. Negative for: Chills ENT: Negative for: Ear Pain, Ear Discharge Cardiovascular: Negative for: Chest Pain, Palpitations Respiratory: Positive for: Cough. Negative for: Shortness of Breath Gastrointestinal: Positive for: Nausea, Vomiting, Abdominal Pain, Diarrhea. Negative for: Constipation Genitourinary: Negative for: Dysuria, Frequency Musculoskeletal: Positive for: Back Pain (with deep inspiration). Negative for: Neck Pain Neurological: Negative for: Weakness, Numbness, Headache, Dizziness Physical Exam - Physical Exam Appears: No Acute Distress, Other (Appears Ill) Skin: Normal Color, Warm, Dry Head: Atraumatic, Normacephalic Eye(s): bilateral: PERRL, EOMI, Other (eyes watery) Oral Mucosa: Moist Neck: Normal ROM, Supple Chest: Symmetrical Cardiovascular: Rhythm Regular, No Murmur Respiratory: No Rales, No Rhonchi, No Wheezing, Other (Lungs CTA bilaterally) Gastrointestinal/Abdominal: Soft, No Tenderness (Diffuse discomfort, but no focal tenderness), No Guarding, No Rebound Back: No CVA Tenderness, No Vertebral Tenderness Extremity: Bilateral: Atraumatic, Normal ROM (x 4) Neurological/Psych: Oriented x3, Normal Speech ED Course And Treatment - Laboratory Results Result Diagrams: 05/08/18 10:19 05/08/18 10:19 Lab Results: Urine HCG, Qual Negative (NEGATIVE) 05/08/18 10:19 Urine HCG, Qual Negative (NEGATIVE) 05/08/18 10:19 O2 Sat by Pulse Oximetry: 98 (RA) Pulse Ox Interpretation: Normal Medical Decision Making Medical Decision Making: Impression: Viral syndrome vs gastroenteritis vs flu Plan: - BMP - CBC - UA - flu swab - NS IV fluids - 20 mg IV Pepcid - 4 mg IV Zofran - 30 mg IV Toradol - Reassess Labs reviewed: negative flu Disposition - Disposition Disposition: HOME/ ROUTINE Disposition Time: 12:00 Condition: STABLE Prescriptions: Ibuprofen [Motrin] 600 mg PO TID #15 tab Nitrofurantoin Monohyd/M-Cryst [Macrobid 100 mg Capsule] 100 mg PO BID #14 capsule Instructions: Urinary Tract Infection, Adult (DC) Forms: [facility] ([place] Citizen), General Discharge Instructions - POA Present On Arrival: None - Clinical Impression Clinical Impression: Viral syndrome, UTI (urinary tract infection) - Scribe Statement The provider has reviewed the documentation as recorded by the Caleb Vernon Provider Attestation: All medical record entries made by the Scribe were at my direction and personally dictated by me. I have reviewed the chart and agree that the record accurately reflects my personal performance of the history, physical exam, medical decision making, and the department course for this patient. I have also personally directed, reviewed, and agree with the discharge instructions and disposition.
[2018-05-08 10:48] LABS: BLOOD UREA NITROGEN 9 mg/dL (7-17); CALCIUM 8.8 mg/dl (8.6-10.4); GFR NON-AFRICAN AMERICAN > 60
[2018-05-08 11:42] VITALS: BP 114/73; PULSE 64; TEMP 97.8
[2018-05-08 11:48] VITALS: O2SAT 98
== END 2018-05-08 12:02 | disposition home or self-care (01) ==
LOC: C.ER 09:22
DX: B34.9 Viral infection, unspecified (principal); N39.0 Urinary tract infection, site not specified
CPT/HCPCS: 80048; 81001; 84703; 85025; 87804; 96361; 96374; 96375; 99285; J1885; J2405; J7030

== ENCOUNTER 2018-07-07 07:25 | Emergency (ER) | payer MEDICAID ==
[2018-07-07 07:25] VITALS: BMI 47.3
[2018-07-07] MEDS ORDERED: Sodium Chloride 0.9% 1,000 ML IV STA (08:17)
[2018-07-07] MEDS ORDERED: Iohexol 240 (50 ml) PO STA (08:17)
[2018-07-07] MEDS ORDERED: Sodium Chloride 0.9% 1,000 ML ONE (08:42)
[2018-07-07] MEDS ORDERED: Iohexol 240 (50 ml) ONE (08:42)
[2018-07-07] MEDS ORDERED: Iodixanol 320 MG/ML 100 ML BOTTLE IV ONE (09:31)
[2018-07-07 09:34] LABS: BASO % 0.4 % (0.0-2.0); EOS # 0.2 K/uL (0.0-0.7); EOS % 1.8 % (0.0-4.0); HEMOGLOBIN 12.6 g/dL (11.0-16.0); LYMPH # 1.3 K/uL (1.0-4.3); LYMPH % 12.6 % (20.0-40.0); MEAN CORPUSCULAR HEMOGLOBIN 29.7 pg (27.0-31.0); MEAN PLATELET VOLUME 9.6 fL (7.2-11.7); MONO # 1.4 K/uL (0.0-0.8); MONO % 13.7 % (0.0-10.0); NEUT # 7.2 K/uL (1.8-7.0); NEUT % 71.5 % (50.0-75.0); RBC 4.24 Mil/uL (3.80-5.20); RED CELL DISTRIBUTION WIDTH 13.8 % (11.5-14.5)
[2018-07-07 09:36] LABS: MEAN CELL VOLUME 84.7 fL (81.0-99.0)
[2018-07-07 09:49] LABS: ALB/GLOB RATIO 1.2 (1.0-2.1); ALBUMIN 4.1 g/dL (3.5-5.0); ALT/SGPT 11 U/L (9-52); AST/SGOT 22 U/L (14-36); BLOOD UREA NITROGEN 13 mg/dL (7-17); CALCIUM 8.8 mg/dl (8.6-10.4); GFR NON-AFRICAN AMERICAN > 60; LIPASE 129 U/L (23-300); SQUAMOUS EPITHIAL 4 /hpf (0-5); URINE BILIRUBIN NEGATIVE (NEGATIVE); URINE BLOOD 1+ (NEGATIVE); URINE CLARITY Clear (Clear); URINE COLOR Yellow (YELLOW); URINE GLUCOSE (UA) NORMAL (Normal); URINE LEUKOCYTE ESTERASE NEG Leu/uL (Negative); URINE PROTEIN NEGATIVE (NEGATIVE); URINE UROBILINOGEN NORMAL mg/dL (0.2-1.0)
[2018-07-07 10:51] VITALS: O2SAT 100
--- NOTE | 2018-07-07 11:29 | CT ---
Date of service: 07/07/2018 PROCEDURE: CT Abdomen and Pelvis with contrast HISTORY: LLQ abd pain, N/V/D COMPARISON: Comparison is made to the previous study dated 04/14/2015 TECHNIQUE: Contrast dose: 100 cc of Visipaque 320 intravenously. Axial and reformatted coronal and sagittal CT images of the abdomen and pelvis were obtained after IV and oral contrast administration. Radiation dose: Total exam DLP = 1056.8 mGy-cm. This CT exam was performed using one or more of the following dose reduction techniques: Automated exposure control, adjustment of the mA and/or kV according to patient size, and/or use of iterative reconstruction technique. FINDINGS: LOWER THORAX: No evidence of acute pathology or pleural effusion. Mild atelectasis noted. There is a small to moderate size hiatus hernia noted. The patient is status post prior attic surgery. The suture line seen extending with the hiatus hernia. LIVER: Unremarkable. No gross lesion or ductal dilatation. GALLBLADDER AND BILE DUCTS: Mild diffuse gallbladder wall thickening is noted. No evidence of intrahepatic or extrahepatic biliary ductal dilatation. PANCREAS: Unremarkable. No gross lesion or ductal dilatation. SPLEEN: Unremarkable. ADRENALS: Unremarkable. No mass. KIDNEYS AND URETERS: Unremarkable. No hydronephrosis. No solid mass. VASCULATURE: Unremarkable. No aortic aneurysm. No aortic atherosclerotic calcification or mural plaque present. BOWEL: There is diffuse large bowel wall thickening more prominent in the ascending and transverse colon consistent with colitis. Wall thickening of the terminal ileum is also noted. No evidence of bowel obstruction. APPENDIX: No evidence of appendicitis. PERITONEUM: Unremarkable. No free fluid. No free air. LYMPH NODES: Unremarkable. No enlarged lymph nodes. BLADDER: Unremarkable. REPRODUCTIVE: The patient is likely status post hysterectomy. BONES: No acute fracture. OTHER FINDINGS: None. IMPRESSION: Findings consistent with colitis more prominent at the ascending and transverse colon. The differential consideration includes infection or inflammatory colitis. Moderate size hiatus hernia. Diffuse gallbladder wall thickening without definite CT evidence of acute cholecystitis or biliary obstruction.
--- NOTE | 2018-07-07 11:32 | C.PDOC ---
History Of Present Illness 43 year old female presents to the emergency department with complaints of LLQ abdominal pain for the last 2 days. Patient also reports associated vomiting and diarrhea. Patient denies any other active complaints. Time Seen by Provider: 07/07/18 07:42 Chief Complaint (Nursing): Abdominal Pain History Per: Patient History/Exam Limitations: no limitations Onset/Duration Of Symptoms: Days (2) Current Symptoms Are (Timing): Still Present Location Of Pain/Discomfort: LLQ Radiation Of Pain To:: None Quality Of Discomfort: "Pain" Associated Symptoms: Vomiting, Diarrhea Past Medical History Reviewed: Historical Data, Nursing Documentation, Vital Signs Vital Signs: Last Vital Signs Temp 99.2 F 07/07/18 07:31 Pulse 66 07/07/18 10:51 Resp 16 07/07/18 10:51 BP 112/72 07/07/18 10:51 Pulse Ox 100 07/07/18 10:51 Primary Care Provider: Non [facility] Provider, - Medical History PMH: Asthma, Depression (resolved), HTN, Hypercholesterolemia Denies: Chronic Kidney Disease Surgical History: Endoscopy - [facility] Procedures ESOPHAGOGASTRODUODENOSCOPY [EGD] W/CLOSED BIOPSY (01/29/14) EXCISION OF STOMACH, ENDO, DIAGN (04/15/15) LAPAROSCOPIC REPAIR OF DIAPHRAGMATIC HRN, ABDOMINAL APPROACH (07/29/14) LAPAROSCOPIC ROBOTIC ASSISTED PROCEDURE (07/29/14) LAPAROSCOPIC VERTICAL (SLEEVE) GASTRECTOMY (07/29/14) OTHER GASTROSCOPY (07/29/14) Family History: States: Diabetes, Hypertension - Social History Hx Tobacco Use: No Hx Alcohol Use: No Hx Substance Use: No - Immunization History Hx Tetanus Toxoid Vaccination: No Hx Influenza Vaccination: Yes Hx Pneumococcal Vaccination: No Review Of Systems Except As Marked, All Systems Reviewed And Found Negative. Constitutional: Negative for: Fever, Chills, Weakness Cardiovascular: Negative for: Chest Pain Respiratory: Negative for: Cough, Shortness of Breath Gastrointestinal: Positive for: Vomiting, Abdominal Pain, Diarrhea. Negative for: Nausea Physical Exam - Physical Exam Appears: Non-toxic, No Acute Distress Skin: Normal Color, Warm, Dry Head: Atraumatic, Normacephalic Eye(s): bilateral: Normal Inspection, PERRL, EOMI Nose: Normal Oral Mucosa: Moist Neck: Normal, Supple Cardiovascular: Rhythm Regular, No Murmur Respiratory: Normal Breath Sounds, No Rales, No Rhonchi, No Wheezing Gastrointestinal/Abdominal: Soft, Tenderness (LLQ), Guarding, No Rebound Extremity: Normal ROM Neurological/Psych: Oriented x3, Normal Speech, Normal Cognition ED Course And Treatment - Laboratory Results Result Diagrams: 07/07/1807/07/18 Lab Results: Total Bilirubin 0.3 mg/dL (0.2-1.3) 07/07/18 AST 22 U/L (14-36) 07/07/18 ALT 11 U/L (9-52) 07/07/18 Alkaline Phosphatase 87 U/L (38-126) 07/07/18 Total Protein 7.4 g/dL (6.3-8.3) 07/07/18 Albumin 4.1 g/dL (3.5-5.0) 07/07/18 Globulin 3.4 gm/dL (2.2-3.9) 07/07/18 Albumin/Globulin Ratio 1.2 (1.0-2.1) 07/07/18 Lipase 129 U/L (23-300) 07/07/18 Urine Color Yellow (YELLOW) 07/07/18 Urine Clarity Clear (Clear) 07/07/18 Urine pH 5.0 (5.0-8.0) 07/07/18 Ur Specific Paragon 1.013 (1.003-1.030) 07/07/18 Urine Protein Negative mg/dL (NEGATIVE) 07/07/18 Urine Glucose (UA) Normal mg/dL (Normal) 07/07/18 Urine Ketones Negative mg/dL (NEGATIVE) 07/07/18 Urine Blood 1+ (NEGATIVE) H 07/07/18 Urine Nitrate Negative (NEGATIVE) 07/07/18 Urine Bilirubin Negative (NEGATIVE) 07/07/18 Urine Urobilinogen Normal mg/dL (0.2-1.0) 07/07/18 Ur Leukocyte Esterase Neg Tadeo/uL (Negative) 07/07/18 Urine WBC (Auto) 1 /hpf (0-5) 05/26/19 09:28 Urine RBC (Auto) 2 /hpf (0-3) 07/07/18 09:28 Ur Squamous Epith Cells 4 /hpf (0-5) 07/07/18 09:28 O2 Sat by Pulse Oximetry: 100 (RA) Pulse Ox Interpretation: Normal - CT Scan/US CT Abdomen and Pelvis Other Rad Studies (CT/US): Read By Radiologist, Radiology Report Reviewed CT/US Interpretation: Date of service: 07/07/2018. PROCEDURE: CT Abdomen and Pelvis with contrast. HISTORY: LLQ abd pain, N/V/D. COMPARISON: Comparison is made to the previous study dated 04/14/2015. TECHNIQUE: Contrast dose: 100 cc of Visipaque 320 intravenously. Axial and reformatted coronal and sagittal CT images of the abdomen and pelvis were obtained after IV and oral contrast administration. Radiation dose: Total exam DLP = 1056.8 mGy-cm. This CT exam was performed using one or more of the following dose reduction techniques: Automated exposure control, adjustment of the mA and/or kV according to patient size, and/or use of iterative reconstruction technique. FINDINGS: LOWER THORAX: No evidence of acute pathology or pleural effusion. Mild atelectasis noted. There is a small to moderate size hiatus hernia noted. The patient is status post prior attic surgery. The suture line seen extending with the hiatus hernia. LIVER: Unremarkable. No gross lesion or ductal dilatation. GALLBLADDER AND BILE DUCTS: Mild diffuse gallbladder wall thickening is noted. No evidence of intrahepatic or extrahepatic biliary ductal dilatation. SETHI CREAS: Unremarkable. No gross lesion or ductal dilatation. SPLEEN: Unremarkable. ADRENALS: Unremarkable. No mass. KIDNEYS AND URETERS: Unremarkable. No hydronephrosis. No solid mass. VASCULATURE: Unremarkable. No aortic aneurysm. No aortic atherosclerotic calcification or mural plaque prese nt. BOWEL: There is diffuse large bowel wall thickening more prominent in the ascending and transverse colon consistent with colitis. Wall thickening of the terminal ileum is also noted. No evidence of bowel obstruction. APPENDIX: No evidence of appendicitis. PERITONEUM: Unremarkable. No free fluid. No free air. LYMPH NODES: Unremarkable. No enlarged lymph nodes. BLADDER: Unremarkable. REPRODUCTIVE: The patient is likely status post hysterectomy. BONES: No acute fracture. OTHER FINDINGS: None. IMPRESSION: Findings consistent with colitis more prominent at the ascending and transverse colon. The differential consideration includes infection or inflammatory colitis. Moderate size hiatus hernia. Diffuse gallbladder wall thickening without definite CT evidence of acute cholecystitis or biliary obstruction. Progress Note: Plan: IV Fluids, Toradol, Zofran, Labs, CT Abdomen and Pelvis shows signs of Colitis. Patient was tx with Cipro and flagyl po and was d/c home with PMD follow up. Disposition - Disposition Disposition: HOME/ ROUTINE Disposition Time: 12:00 Condition: STABLE Additional Instructions: Follow up with PMD within 1-2 days. Return to ED if feel worse. Prescriptions: Dicyclomine [Bentyl] 20 mg PO TID #30 tab Ciprofloxacin/Ciprofloxa HCl [Ciprofloxacin] 500 mg PO Q12 #14 ter metroNIDAZOLE [Flagyl] 500 mg PO Q8 #21 tab Ondansetron ODT [Zofran ODT] 4 mg PO Q6 #20 odt Instructions: Colitis Forms: [facility] (Montenegrin), Work Excuse Print Language: AMERICAN - Clinical Impression Clinical Impression: Colitis - PA / [employer] / Resident Statement MD/DO has reviewed & agrees with the documentation as recorded. - Scribe Statement The provider has reviewed the documentation as recorded by the Scribe (Landon Noonan) All medical record entries made by the Scribe were at my direction and personally dictated by me. I have reviewed the chart and agree that the record accurately reflects my personal performance of the history, physical exam, medical decision making, and the department course for this patient. I have also personally directed, reviewed, and agree with the discharge instructions and disposition.
[2018-07-07 12:32] VITALS: BP 105/70; PULSE 67; RESP 18; TEMP 98.2
== END 2018-07-07 12:32 | disposition home or self-care (01) ==
LOC: C.ER 07:25
DX: K52.9 Noninfective gastroenteritis and colitis, unspecified (principal); I10 Essential (primary) hypertension; E78.00 Pure hypercholesterolemia, unspecified
CPT/HCPCS: 74177; 80053; 81001; 81025; 83690; 85025; 96361; 96374; 96375; 99285; J1885; J2405; J7030; Q9966; Q9967